=== PATIENT | male | born 1940 | race Caucasian/White ===

== ENCOUNTER 2016-04-07 13:59 | Emergency (ER) | payer MEDICARE, OTHER ==
[2016-04-07] MEDS ORDERED: Aspirin 81 MG Tab.Chew PO ONE (14:06)
--- NOTE | 2016-04-07 14:46 | CR ---
EXAMINATION: Portable chest radiograph. HISTORY: Chest. FINDINGS: The trachea is midline. The cardiomediastinal silhouette is within normal limits. No pulmonary infil trates, effusions or pneumothorax. Osseous structures appear unremarkable. IMPRESSION: No acute cardiopulmonary process.
--- NOTE | 2016-04-07 15:01 | EDM.PDOC ---
ED HISTORY OF PRESENT ILLNESS - General Chief Complaint: Chest Pain Stated Complaint: POSS PNUEMONIA Time Seen by Provider: 04/07/16 14:05 Source of Information: Reports: Patient History Limitations: Reports: No limitations - History of Present Illness INITIAL COMMENTS - FREE TEXT/NARRATIVE: HISTORY AND PHYSICAL: History of present illness: [Comes to the emergency room complaining of some shortness of breath and vague chest pain. States that he hasn't felt well for the past couple of weeks with decreased appetite and low back pain. He hasn't slept well for the past couple of nights due to his low back pain. He drove himself and his from [employer] and got home late last night. He has some discomfort in his chest with taking a deep breath but has not felt overly short of air. No nausea or vomiting. No episodes of diaphoresis. No change to memory or alertness. Bowel and bladder have been normal. He has had some occasional dry cough but nothing significant and no sputum production. No headaches. Has a history of hypertension and atrial fibrillation. Back pain is over R low back.Takes Norvasc at bedtime and Eliquis twice a day.] Review of systems: As per history of present illness and below otherwise all systems reviewed and negative. Past medical history: As per history of present illness and as reviewed below otherwise noncontributory. Surgical history: As per history of present illness and as reviewed below otherwise noncontributory. Social history: No reported history of drug or alcohol abuse. Family history: As per history of present illness and as reviewed below otherwise noncontributory. Physical exam: HEENT: Atraumatic, normocephalic. Wears glasses. negative for conjunctival pallor and scleral icterus. mucous membranes moist, throat clear. neck supple, nontender, lymphadenopathy. trachea midline. Lungs: Clear to auscultation, breath sounds equal bilaterally, no wheezing crackles or rales. chest nontender to palpation. Heart: S1S2, regular, negative for clicks, rubs, or JVD. Abdomen: Normoactive bowel sounds throughout. Abdomen is soft, nondistended, nontender. No CVA tenderness Negative for masses or hepatosplenomegaly. Pelvis: Stable nontender. Back: No deformity or abnormality is appreciated. No rashes or skin lesions. No spinal tenderness w/ palpation. No CVA tenderness. Genitourinary: Deferred. Rectal: Deferred. Extremities: Atraumatic, negative for cords or calf pain. Neurovascular unremarkable. Neuro: Awake, alert, oriented. Cranial nerves II through XII unremarkable. Cerebellum unremarkable. Motor and sensory unremarkable throughout. Exam nonfocal. Diagnostics: [CBC, CMP, troponin, urinalysis, chest x-ray, lumbar spine x-ray, EKG, d-dimer] Therapeutics: [Aspirin 324 mg by mouth, Toradol 30 mg IV] Impression: [Low back pain] Plan: [Discussed with patient that his chest x-ray, lab results are within normal limits. Chest pain does not appear to be cardiac or pneumonia related. Lumbar x- ray shows no fractures or dislocations. Recommend that he followup with provider as scheduled for April 10. He return to ER as needed and as discussed. All of his questions are answered and concerns are addressed.] Definitive disposition and diagnosis as appropriate pending reevaluation and review of above. - Related Data Allergies/ADRs: Allergies Allergy/AdvReac Type Severity Reaction Status Date / Time ofloxacin Allergy Unknown Verified 04/07/16 14:07 Sulfa (Sulfonamide Allergy Unknown Verified 04/07/16 14:07 Antibiotics) sulfasalazine Allergy Unknown Verified 04/07/16 14:07 [From Azulfidine] Home Meds: Home Meds Apixaban [Eliquis] 2 tab PO DAILY 04/07/16 [History] Aspirin [Halfprin] 162 mg PO DAILY 04/07/16 [History] Finasteride 5 mg PO DAILY 04/07/16 [History] amLODIPine [Norvasc] 10 mg PO BEDTIME 04/07/16 [History] Past Medical History Cardiovascular History: Reports: Afib, Hypertension Social & Family History - Family History Family Medical History: Noncontributory - Tobacco Use Smoking Status *Q: Former Smoker Tobacco Use Comment: quit smoking 34 years ago - Alcohol Use Days Per Week of Alcohol Use: 1 Number of Drinks Per Day: 1 Total Drinks Per Week: 1 - Recreational Drug Use Recreational Drug Use: No ED ROS GENERAL - Review of Systems Review Of Systems: ROS reveals no pertinent complaints other than HPI. ED EXAM, GENERAL - Physical Exam Exam: See Below Course - Vital Signs Last Recorded V/S: Last Vital Signs Temp 98.1 F 04/07/16 17:02 Pulse 102 H 04/07/16 17:02 Resp 16 04/07/16 17:02 BP 118/82 04/07/16 17:02 Pulse Ox 95 04/07/16 17:02 - Orders/Labs/Meds Orders: Active Orders 24 hr Category Date Time Status EKG Documentation Completion [RC] STAT Care 04/07/16 14:05 Active Labs: Laboratory Tests 04/07/16 04/07/16 04/07/16 Range/Units 14:05 14:05 14:05 WBC 5.91 (4.0-11.0) K/uL RBC 5.11 (4.50-5.90) M/uL Hgb 15.1 (13.0-17.0) g/dL Hct 46.0 (38.0-50.0) % MCV 90.0 (80.0-98.0) fL MCH 29.5 (27.0-32.0) pg MCHC 32.8 (31.0-37.0) g/dL RDW Std Deviation 46.5 (28.0-62.0) fl RDW Coeff of Enzo 14 (11.0-15.0) % Plt Count 199 (150-400) K/uL MPV 10.30 (7.40-12.00) fL Neut % (Auto) 67.0 (48.0-80.0) % Lymph % (Auto) 18.8 (16.0-40.0) % [place] % (Auto) 12.7 (0.0-15.0) % Eos % (Auto) 1.2 (0.0-7.0) % Baso % (Auto) 0.3 (0.0-1.5) % Neut # 4.0 (1.4-5.7) K/uL Lymph # 1.1 (0.6-2.4) K/uL [place] # 0.8 (0.0-0.8) K/uL Eos # 0.1 (0.0-0.7) K/uL Baso # 0.0 (0.0-0.1) K/uL Nucleated RBC % 0.0 /100WBC Nucleated RBCs # 0 K/uL D-Dimer, Quantitative (0.0-0.52) mg/LFEU Sodium 142 (136-146) mmol/L Potassium 3.6 (3.5-5.1) mmol/L Chloride 106 (98-110) mmol/L Carbon Dioxide 24 (21-31) mmol/L BUN 26 H (6.0-23.0) mg/dL Creatinine 1.4 (0.6-1.5) mg/dL Est Cr Clr Drug Dosing 52.81 mL/min Estimated GFR (MDRD) 49.1 ml/min Glucose 108 (60-110) mg/dL Calcium 9.7 (8.8-10.8) mg/dL Total Bilirubin 0.6 (0.1-1.5) mg/dL AST 40 (5-40) IU/L ALT 43 (8-54) IU/L Alkaline Phosphatase 62 (40-150) CK-MB (CK-2) 1.7 (0-6.6) ng/ml Troponin I < 0.10 (0.0-0.29) NG/ML Total Protein 8.1 H (6.0-8.0) g/dL Albumin 4.4 (3.4-4.8) g/dL Globulin 3.7 H (2.0-3.5) g/dL Albumin/Globulin Ratio 1.2 L (1.3-2.8) Urine Color Urine Appearance Urine pH (5.0-8.0) Ur Specific [place] (1.001-1.035) Urine Protein (NEGATIVE) mg/dL Urine Glucose (UA) (NEGATIVE) mg/dL Urine Ketones (NEGATIVE) mg/dL Urine Occult Blood (NEGATIVE) Urine Nitrite (NEGATIVE) Urine Bilirubin (NEGATIVE) Urine Ictotest Urine Urobilinogen (<2.0) EU/dL Ur Leukocyte Esterase (NEGATIVE) Urine RBC (0-2/HPF) Urine WBC (0-5/HPF) Ur Epithelial Cells (NONE-FEW) Urine Bacteria (NEGATIVE) Hyaline Casts (0-2/LPF) Urine Mucus (NONE-MOD) 04/07/16 04/07/16 Range/Units 14:05 15:10 WBC (4.0-11.0) K/uL RBC (4.50-5.90) M/uL Hgb (13.0-17.0) g/dL Hct (38.0-50.0) % MCV (80.0-98.0) fL MCH (27.0-32.0) pg MCHC (31.0-37.0) g/dL RDW Std Deviation (28.0-62.0) fl RDW Coeff of Enzo (11.0-15.0) % Plt Count (150-400) K/uL MPV (7.40-12.00) fL Neut % (Auto) (48.0-80.0) % Lymph % (Auto) (16.0-40.0) % [place] % (Auto) (0.0-15.0) % Eos % (Auto) (0.0-7.0) % Baso % (Auto) (0.0-1.5) % Neut # (1.4-5.7) K/uL Lymph # (0.6-2.4) K/uL [place] # (0.0-0.8) K/uL Eos # (0.0-0.7) K/uL Baso # (0.0-0.1) K/uL Nucleated RBC % /100WBC Nucleated RBCs # K/uL D-Dimer, Quantitative 0.34 (0.0-0.52) mg/LFEU Sodium (136-146) mmol/L Potassium (3.5-5.1) mmol/L Chloride (98-110) mmol/L Carbon Dioxide (21-31) mmol/L BUN (6.0-23.0) mg/dL Creatinine (0.6-1.5) mg/dL Est Cr Clr Drug Dosing mL/min Estimated GFR (MDRD) ml/min Glucose (60-110) mg/dL Calcium (8.8-10.8) mg/dL Total Bilirubin (0.1-1.5) mg/dL AST (5-40) IU/L ALT (8-54) IU/L Alkaline Phosphatase (40-150) CK-MB (CK-2) (0-6.6) ng/ml Troponin I (0.0-0.29) NG/ML Total Protein (6.0-8.0) g/dL Albumin (3.4-4.8) g/dL Globulin (2.0-3.5) g/dL Albumin/Globulin Ratio (1.3-2.8) Urine Color YELLOW Urine Appearance HAZY Urine pH 6.0 (5.0-8.0) Ur Specific [place] 1.025 (1.001-1.035) Urine Protein 30 (NEGATIVE) mg/dL Urine Glucose (UA) NEGATIVE (NEGATIVE) mg/dL Urine Ketones TRACE H (NEGATIVE) mg/dL Urine Occult Blood NEGATIVE (NEGATIVE) Urine Nitrite NEGATIVE (NEGATIVE) Urine Bilirubin SMALL H (NEGATIVE) Urine Ictotest NEGATIVE Urine Urobilinogen 1.0 (<2.0) EU/dL Ur Leukocyte Esterase NEGATIVE (NEGATIVE) Urine RBC 0-2 (0-2/HPF) Urine WBC 1-3 (0-5/HPF) Ur Epithelial Cells RARE (NONE-FEW) Urine Bacteria FEW (NEGATIVE) Hyaline Casts 0-2 (0-2/LPF) Urine Mucus MANY (NONE-MOD) Meds: Medications Discontinued Medications Generic Name Dose Route Start Last Admin Trade Name Freq PRN Reason Stop Dose Admin Ketorolac Tromethamine 30 mg 04/07/16 16:25 04/07/16 16:48 Toradol IVPUSH 04/07/16 16:26 30 mg ONETIME ONE Administration Departure - Departure Time of Disposition: 16:30 Disposition: Home, Self-Care 01 Condition: good Clinical Impression: Low back pain Qualifiers: Chronicity: acute Back pain laterality: unspecified Sciatica presence: without sciatica Qualified Code(s): M54.5 - Low back pain Instructions: Back Pain, Adult, [id number] Referrals: Thom Reyes MD [Primary Care Provider] - Forms: ED Department Discharge Additional Instructions: The following information is given to patients seen in the emergency department who are being discharged to home. This information is to outline your options for follow-up care. We provide all patients seen in our emergency department with a follow-up referral. The need for follow-up, as well as the timing and circumstances, are variable depending upon the specifics of your emergency department visit. If you don't have a primary care physician on staff, we will provide you with a referral. We always advise you to contact your personal physician following an emergency department visit to inform them of the circumstance of the visit and for follow-up with them and/or the need for any referrals to a consulting specialist. The emergency department will also refer you to a specialist when appropriate. This referral assures that you have the opportunity for follow-up care with a specialist. All of these measure are taken in an effort to provide you with optimal care, which includes your follow-up. Under all circumstances we always encourage you to contact your private physician who remains a resource for coordinating your care. When calling for follow-up care, please make the office aware that this follow-up is from your recent emergency room visit. If for any reason you are refused follow-up, please contact the [facility] emergency department at and asked to speak to the emergency department charge nurse. [facility] [address] [place] [id number] Followup with her primary care provider is scheduled for April 10. Take diclofenac with food. May alternate with Tylenol as needed for discomfort. Return to ER as needed and as discussed. - My Orders Last 24 Hours: My Active Orders 04/07/16 14:05 EKG Documentation Completion [RC] STAT - Assessment/Plan Last 24 Hours: My Active Orders 04/07/16 14:05 EKG Documentation Completion [RC] STAT
--- NOTE | 2016-04-07 16:06 | CR ---
EXAMINATION: Lumbar spine HISTORY: Pain COMPARISON: None TECHNIQUE: AP and lateral views FINDINGS: There is mild levoscoliosis of the lumbar spine. Mild wedge deformities are noted at L2 an d L3. Moderate marginal osteophytes are noted. The osseous structures appear osteopenic. SI joints a re symmetric. Moderate vascular calcifications are present. IMPRESSION: 1. Moderate osteopenia. 2. Mild levoscoliosis with wedge deformities at L2 and L3. 3. Moderate degenerative changes.
[2016-04-07] MEDS ORDERED: Ketorolac 30 MG/ML SDV IVPUSH ONE (16:25)
[2016-04-07 17:06] VITALS: BP 118/82
== END 2016-04-07 17:03 | disposition home or self-care (01) ==
LOC: MW.ED 13:59
DX: M54.5 Low back pain (principal); R07.89 Other chest pain; I48.91 Unspecified atrial fibrillation; I10 Essential (primary) hypertension; Z88.2 Allergy status to sulfonamides; Z88.6 Allergy status to analgesic agent; Z79.82 Long term (current) use of aspirin; Z79.899 Other long term (current) drug therapy; Z87.891 Personal history of nicotine dependence
CPT/HCPCS: 71010; 72100; 80053; 81001; 82553; 84484; 85025; 85379; 93005; 96374; 99285; J1885; 99284

== ENCOUNTER → 2016-04-10 | Outpatient (CLI) | payer MEDICARE, OTHER | LOC: MW.CHIM 15:14 | PROVIDERS: ATTEND Internal Medicine | DX: R05 Cough (principal) | CPT/HCPCS: 36415; 86635; 99214 ==

== ENCOUNTER → 2016-04-12 | Outpatient (CLI) | payer MEDICARE, OTHER ==
--- NOTE | 2016-04-13 14:25 | CT ---
MEXAM DATE: 04/12/16 PATIENT'S AGE: 76 Patient: HO ARANGO Facility: [place], [place] Site . Site : 1940 Study: CT Chest WO CONT [id number] 1:31:20 PM Ordering Physician: Sandee Lazar Final Report: INDICATION: Cough and dyspnea. TECHNIQUE: CT chest without contrast. COMPARISON: Radiograph July 08, 2013. FINDINGS: LUNGS: There is a pleural based mass or infiltrate in the lateral right lung apex measuring 4.2 x 3.2 x 2.5 cm. There is a halo of ground-glass opacification surrounding this lesion. Soft tissue nodule in the medial right lung apex on the axial series image 15 measures 1.7 x 1.4 cm. There are 2 nodules between the right upper lobe mass and the hilum. The larger nodule on the axial series image 36 measures 1.9 x 1.5 cm. Smaller adjacent nodule on image 37 measures approximately 0.6 cm. Passive atelectasis is present in the right lower lobe. PLEURA AND PERICARDIUM: There is a moderate sized right pleural effusion. HEART AND VASCULATURE: Heart size is normal. Thoracic aorta and pulmonary artery are normal in caliber.Coronary artery atherosclerosis is present. LYMPH NODES/MEDIASTINUM: There is bulky mediastinal and right hilar lymphadenopathy. For example in a lymph node mass exam on axial series image 41 measures 7.0 x 4.2 cm. CHEST WALL: No masses. There are 2 subcentimeter low attenuation nodules in the right thyroid lobe. UPPER ABDOMEN: Small cystic lesions are present in the liver. Adrenal glands are normal. BONES: Unremarkable for age. IMPRESSION: Pleural-based right upper lobe mass is a malignancy until proven otherwise. Satellite nodules in the right upper lobe and bulky mediastinal and right hilar lymphadenopathy are consistent with metastatic disease. There is also a right- sided pleural effusion. No sign of acute or metastatic disease elsewhere in the chest or upper abdomen. Dictated by Tristen Palacios MD @ Apr 13 2016 9:38AM (Electronic Signature) Report Signed by Proxy and Original Signed Document filed in the Medical Record. [facility]
--- NOTE | 2016-04-13 14:26 | CT ---
EXAM DATE: 04/12/16 PATIENT'S AGE: 76 Patient: HO ARANGO Facility: [place], [place] Site . Site : 1940 Study: CT Abdomen/Pelvis W/O CONT [id number] 1:36:46 PM Ordering Physician: Sandee Lazar Final Report: INDICATION: Cough. Dyspnea. Renal colic. TECHNIQUE: CT abdomen and pelvis without contrast. COMPARISON: May 02, 2011. FINDINGS: LOWER CHEST: There is a moderate size right pleural effusion with adjacent passive atelectasis. LIVER: There are multiple small benign-appearing cystic lesions. Liver is otherwise normal in caliber and appearance. GALLBLADDER AND BILE DUCTS: No stones or inflammation. No biliary dilatation. PANCREAS: Unremarkable. No mass or inflammation. SPLEEN: Normal in size. No masses. ADRENAL GLANDS: Subtle nodularity of the left adrenal gland is of doubtful significance. KIDNEYS: Tiny solitary stone is nonobstructing in the left kidney. No other kidney or ureteral stones. No hydronephrosis. Small bilateral parapelvic cysts are present. No sign of perinephric inflammation. GI TRACT: Mild stool retention is present in the proximal colon. GI tract is otherwise normal in caliber and appearance. Normal appendix. VASCULATURE: Moderate aortic atherosclerosis and ectasia of the distal abdominal aorta. The common iliac arteries are minimally aneurysmal. LYMPH NODES: No lymphadenopathy. OMENTUM/PERITONEUM: Solitary 1 cm well-circumscribed nodule is in the right aspect of the omentum visualized on the axial series 2 image 45. No other sign of mass or infiltrate. No free fluid and no free air. PELVIS: Marked prostatic hypertrophy. Urinary bladder is unremarkable except for a small right posterior diverticulum. BONES: No suspicious bone lesions. Mild scoliosis and multilevel spondylosis in the lumbar spine. IMPRESSION: 1. No findings to explain renal colic. There is a single tiny nonobstructive left renal stone. No hydronephrosis and no sign of edema or inflammation in the tract. 2. Moderate size right pleural effusion with adjacent atelectasis. 3. Marked prostate gland hypertrophy. 4. Solitary right omental soft tissue nodule likely represents a lymph node measuring 1 cm. As an isolated finding this is of doubtful significance. Dictated by Tristen Palacios MD @ 04/13/2016 9:50:10 AM Dictated by: Tristen Palacios MD @ 04/13/2016 09:50:17 (Electronic Signature) Report Signed by Proxy and Original Signed Document filed in the Medical Record. [facility]
== END ==
LOC: MW.DI 12:43
PROVIDERS: ATTEND Internal Medicine
DX: R05 Cough (principal); N23 Unspecified renal colic; R06.00 Dyspnea, unspecified; N20.0 Calculus of kidney; J98.11 Atelectasis; N40.0 Benign prostatic hyperplasia without lower urinary tract symptoms; R91.8 Other nonspecific abnormal finding of lung field; J90 Pleural effusion, not elsewhere classified; C79.89 Secondary malignant neoplasm of other specified sites; C77.1 Secondary and unspecified malignant neoplasm of intrathoracic lymph nodes
CPT/HCPCS: 71250; 71250-26; 74176; 74176-26

== ENCOUNTER → 2016-04-14 | Outpatient (CLI) | payer MEDICARE, OTHER | LOC: MW.CHIM 08:00 | PROVIDERS: ATTEND Internal Medicine | DX: R91.8 Other nonspecific abnormal finding of lung field (principal); J91.0 Malignant pleural effusion; R05 Cough; R06.00 Dyspnea, unspecified | CPT/HCPCS: 99214 ==

== ENCOUNTER 2016-11-26 18:57 | Observation (INO) | payer MEDICARE, OTHER ==
[2016-11-26] MEDS ORDERED: Ondansetron 4 MG/2 ML SDV IVPUSH ONE (19:26)
[2016-11-26] MEDS ORDERED: HYDROmorphone 1 MG/ML Syringe IVPUSH ONE (19:26)
[2016-11-26] MEDS ORDERED: Sodium Chloride 0.9% 1,000 ML IV SCH (19:30)
--- NOTE | 2016-11-26 19:33 | EDM.PDOC ---
ED HPI GENERAL MEDICAL PROBLEM - General Chief Complaint: General Stated Complaint: STOMACH PAIN Time Seen by Provider: 11/26/16 19:06 - History of Present Illness INITIAL COMMENTS - FREE TEXT/NARRATIVE: HISTORY AND PHYSICAL: History of present illness: Patient is 76-year-old white male history of metastatic lung cancer and chronic atrial fibrillation who presents with a concern of abdominal pain nausea vomiting and constipation he's been battling with these symptoms off and on although he states today somewhat worse he has had similar episodes requiring IV fluids for dehydration he denies chest pain palpitations fever chills trauma urinary symptoms or other concern Review of systems: As per history of present illness and below otherwise all systems reviewed and negative. Past medical history: As per history of present illness and as reviewed below otherwise noncontributory. Surgical history: As per history of present illness and as reviewed below otherwise noncontributory. Social history: No reported history of drug or alcohol abuse. Family history: As per history of present illness and as reviewed below otherwise noncontributory. Physical exam: HEENT: Atraumatic, normocephalic, pupils reactive, mild conjunctival pallor no scleral icterus, mucous membranes moist, throat clear, neck supple, nontender, trachea midline. Lungs: Slightly coarse no wheezing, breath sounds equal bilaterally, chest nontender. Heart: S1S2, regular, negative for clicks, rubs, or JVD. Abdomen: Soft, nondistended, no localized tenderness. Negative for masses or hepatosplenomegaly. Negative for costovertebral tenderness. Pelvis: Stable nontender. Genitourinary: Deferred. Rectal: Deferred. Extremities: Atraumatic, negative for cords or calf pain. Neurovascular unremarkable. Neuro: Awake, alert, oriented. Cranial nerves II through XII unremarkable. Cerebellum unremarkable. Motor and sensory unremarkable throughout. Exam nonfocal. Diagnostics: CBC CMP amylase lipase UA chest x-ray EKG CT abdomen and pelvis with IV contrast Therapeutics: Normal saline 1 L bolus Dilaudid 1 mg IV Zofran 4 mg IV Impression: #1 history of metastatic lung cancer #2 abdominal pain #3 vomiting with dehydration #4 history of chronic A. fib Definitive disposition and diagnosis as appropriate pending reevaluation and review of above. Abdomen Pain Score (Numeric/FACES): 9 - Related Data Allergies Allergy/AdvReac Type Severity Reaction Status Date / Time ofloxacin Allergy Unknown Verified 11/26/16 19:15 Sulfa (Sulfonamide Allergy Unknown Verified 11/26/16 19:15 Antibiotics) sulfasalazine Allergy Unknown Verified 11/26/16 19:15 [From Azulfidine] Home Meds: Home Meds Finasteride 5 mg PO DAILY 04/07/16 [History] amLODIPine [Norvasc] 10 mg PO BEDTIME 04/07/16 [History] Apixaban [Eliquis] 10 mg PO DAILY 11/26/16 [History] Morphine 15 mg PO DAILY 11/26/16 [History] Ondansetron [Zofran] 4 mg PO DAILY PRN 11/26/16 [History] Past Medical History HEENT History: Reports: None Cardiovascular History: Reports: Afib, Hypertension Respiratory History: Reports: Other (See Below) Other Respiratory History: lung ca Gastrointestinal History: Reports: None Genitourinary History: Reports: None Musculoskeletal History: Reports: None Neurological History: Reports: None Psychiatric History: Reports: None Endocrine/Metabolic History: Reports: None Hematologic History: Reports: None Immunologic History: Reports: None Oncologic (Cancer) History: Reports: Lung Dermatologic History: Reports: None - Infectious Disease History Infectious Disease History: Reports: None - Past Surgical History Head Surgeries/Procedures: Reports: None HEENT Surgical History: Reports: None Cardiovascular Surgical History: Reports: None GI Surgical History: Reports: None Male Surgical History: Reports: None Social & Family History - Family History Family Medical History: Noncontributory - Tobacco Use Smoking Status *Q: Former Smoker - Caffeine Use Caffeine Use: Reports: Coffee - Alcohol Use Days Per Week of Alcohol Use: 1 Number of Drinks Per Day: 1 Total Drinks Per Week: 1 - Recreational Drug Use Recreational Drug Use: No ED ROS GENERAL - Review of Systems Review Of Systems: ROS reveals no pertinent complaints other than HPI. ED EXAM, GENERAL - Physical Exam Exam: See Below (See dictation) Course - Vital Signs Last Recorded V/S: Last Vital Signs Temp 36.1 C 11/26/16 20:40 Pulse 94 11/26/16 20:40 Resp 16 11/26/16 20:40 BP 138/93 H 11/26/16 20:40 Pulse Ox 96 11/26/16 20:40 - Orders/Labs/Meds Orders: Active Orders 24 hr Category Date Time Status EKG Documentation Completion [RC] STAT Care 11/26/16 19:26 Active Abdomen Pelvis w Cont [CT] Stat Exams 11/26/16 19:30 Taken Chest 1V Frontal [CR] Stat Exams 11/26/16 19:26 Taken Sodium Chloride 0.9% [Normal Saline] 1,000 ml Med 11/26/16 19:30 Active IV ASDIRECTED Medication Orders Sodium Chloride (Normal Saline) 1,000 mls @ 999 mls/hr IV ASDIRECTED NUPUR Last Admin: 11/26/16 19:46 Dose: 999 mls/hr Labs: Laboratory Tests 11/26/16 11/26/16 11/26/16 Range/Units 19:40 19:40 21:00 WBC 5.18 (4.0-11.0) K/uL RBC 3.89 L (4.50-5.90) M/uL Hgb 12.2 L (13.0-17.0) g/dL Hct 36.7 L (38.0-50.0) % MCV 94.3 (80.0-98.0) fL MCH 31.4 (27.0-32.0) pg MCHC 33.2 (31.0-37.0) g/dL RDW Std Deviation 51.5 (28.0-62.0) fl RDW Coeff of Enzo 15 (11.0-15.0) % Plt Count 218 (150-400) K/uL MPV 9.20 (7.40-12.00) fL Neut % (Auto) 69.1 (48.0-80.0) % Lymph % (Auto) 13.5 L (16.0-40.0) % [place] % (Auto) 14.1 (0.0-15.0) % Eos % (Auto) 2.9 (0.0-7.0) % Baso % (Auto) 0.4 (0.0-1.5) % Neut # (Auto) 3.6 (1.4-5.7) K/uL Lymph # (Auto) 0.7 (0.6-2.4) K/uL [place] # (Auto) 0.7 (0.0-0.8) K/uL Eos # (Auto) 0.2 (0.0-0.7) K/uL Baso # (Auto) 0.0 (0.0-0.1) K/uL Nucleated RBC % 0.0 /100WBC Nucleated RBCs # 0 K/uL Sodium 136 (136-146) mmol/L Potassium 4.9 (3.5-5.1) mmol/L Chloride 99 (98-110) mmol/L Carbon Dioxide 27 (21-31) mmol/L BUN 22 (6.0-23.0) mg/dL Creatinine 1.1 (0.6-1.5) mg/dL Est Cr Clr Drug Dosing 62.28 mL/min Estimated GFR (MDRD) > 60.0 ml/min Glucose 120 H (60-110) mg/dL Calcium 9.8 (8.8-10.8) mg/dL Total Bilirubin 0.5 (0.1-1.5) mg/dL AST 47 H (5-40) IU/L ALT 38 (8-54) IU/L Alkaline Phosphatase 52 (40-150) Total Protein 8.1 H (6.0-8.0) g/dL Albumin 3.6 (3.4-4.8) g/dL Globulin 4.5 H (2.0-3.5) g/dL Albumin/Globulin Ratio 0.8 L (1.3-2.8) Amylase 53 (10-90) U/L Lipase 24 (7-80) U/L Urine Color YELLOW Urine Appearance CLEAR Urine pH 6.0 (5.0-8.0) Ur Specific [place] 1.020 (1.001-1.035) Urine Protein NEGATIVE (NEGATIVE) mg/dL Urine Glucose (UA) NEGATIVE (NEGATIVE) mg/dL Urine Ketones NEGATIVE (NEGATIVE) mg/dL Urine Occult Blood NEGATIVE (NEGATIVE) Urine Nitrite NEGATIVE (NEGATIVE) Urine Bilirubin NEGATIVE (NEGATIVE) Urine Urobilinogen 0.2 (<2.0) EU/dL Ur Leukocyte Esterase NEGATIVE (NEGATIVE) Urine RBC 0-1 (0-2/HPF) Urine WBC 0-2 (0-5/HPF) Ur Epithelial Cells OCCASIONAL (NONE-FEW) Urine Bacteria RARE (NEGATIVE) Meds: Medications Generic Name Dose Route Start Last Admin Trade Name Freq PRN Reason Stop Dose Admin Sodium Chloride 1,000 mls @ 999 mls/hr 11/26/16 19:30 11/26/16 19:46 Normal Saline IV 999 mls/hr ASDIRECTED NUPUR Administration Discontinued Medications Generic Name Dose Route Start Last Admin Trade Name Howard PRN Reason Stop Dose Admin Hydromorphone HCl 1 mg 11/26/16 19:26 11/26/16 19:49 Dilaudid IVPUSH 11/26/16 19:27 1 mg ONETIME ONE Administration Iopamidol 100 ml 11/26/16 22:48 11/26/16 22:48 Isovue Multipack-370 (76%) IVPUSH 11/26/16 22:49 100 ml ONETIME STA Administration Ondansetron HCl 4 mg 11/26/16 19:26 11/26/16 19:46 Zofran IVPUSH 11/26/16 19:27 4 mg ONETIME ONE Administration Departure - Departure Time of Disposition: 23:01 Disposition: Refer to Observation Condition: Good Clinical Impression: Abdominal pain, Metastatic lung cancer (metastasis from lung to other site), Dehydration, Atrial fibrillation - Discharge Information Referrals: Thom Reyes MD [Primary Care Provider] - Forms: ED Department Discharge - My Orders Last 24 Hours: My Active Orders 11/26/16 19:26 EKG Documentation Completion [RC] STAT Chest 1V Frontal [CR] Stat 11/26/16 19:30 Abdomen Pelvis w Cont [CT] Stat Sodium Chloride 0.9% [Normal Saline] 1,000 ml IV ASDIRECTED - Assessment/Plan Last 24 Hours: My Active Orders 11/26/16 19:26 EKG Documentation Completion [RC] STAT Chest 1V Frontal [CR] Stat 11/26/16 19:30 Abdomen Pelvis w Cont [CT] Stat Sodium Chloride 0.9% [Normal Saline] 1,000 ml IV ASDIRECTED
[2016-11-26 20:03] LABS: CHLORIDE,CL 99 mmol/L (98-110); SODIUM,NA 136 mmol/L (136-146)
[2016-11-26] MEDS ORDERED: Iopamidol 755 MG/ML 500 ML Multipack Bottle IVPUSH STA (22:48)
[2016-11-27] MEDS ORDERED: oxyCODONE 5 MG Tab PO PRN (00:15)
[2016-11-27] MEDS: Sodium Chloride 0.9% 1,000 ML IV SCH ×3 (01:08→20:15)
[2016-11-27] MEDS: Ondansetron 4 MG/2 ML SDV IVPUSH PRN ×3 (03:49→15:40)
[2016-11-27 06:43] LABS: CHLORIDE,CL 102 mmol/L (98-110); SODIUM,NA 136 mmol/L (136-146)
--- NOTE | 2016-11-27 08:01 | PCM.HP ---
H&P History of Present Illness - General Date of Service: 11/27/16 Admit Problem/Dx: Admission Diagnosis/Problem Admission Diagnosis/Problem Abdominal pain Source of Information: Patient History Limitations: Reports: No Limitations - History of Present Illness Initial Comments - Free Text/Narative: This 76 year old male with pmh of metastatic lung ca and afib presented to the ED with concerns of abdominal pain and nausea. He reports having lower abdominal pain, which is cramping in nature, sharp and intermittent. He reports this has been a chronic issue and has a EGD scheduled for next week with Dr. Brady, general surgery here. He also had been seen by GI specialist in the past and treated for IBD. He denies any fevers, chest pain or SOB at home. He does report some constipation, no black or bloody bms. His appetite has been poor due to nausea. In the ED labwork WNL. Abd pelvis CT revealed thickening of ascending colom, diffuse osseous metastatic disease and small r pleural effusion. He was admitted observation for abdominal pain, colitis. Abdomen Pain Score (Numeric/FACES): 5 - Related Data Allergies/Adverse Reactions: Allergies Allergy/AdvReac Type Severity Reaction Status Date / Time Sulfa (Sulfonamide Allergy Unknown Verified 11/26/16 19:15 Antibiotics) sulfasalazine Allergy Unknown Verified 11/26/16 19:15 [From Azulfidine] Home Medications: Home Meds Finasteride 5 mg PO DAILY 04/07/16 [History] amLODIPine [Norvasc] 10 mg PO BEDTIME 04/07/16 [History] Apixaban [Eliquis] 5 mg PO BID 11/26/16 [History] Ondansetron [Zofran] 4 mg PO DAILY PRN 11/26/16 [History] Morphine Sulfate [Morphine Sulfate ER] 15 mg PO DAILY 11/27/16 [History] Past Medical History HEENT History: Reports: None Cardiovascular History: Reports: Afib, Hypertension Respiratory History: Reports: Other (See Below) Other Respiratory History: lung ca Gastrointestinal History: Reports: None Genitourinary History: Reports: None Musculoskeletal History: Reports: None Neurological History: Reports: None Psychiatric History: Reports: None Endocrine/Metabolic History: Reports: None Hematologic History: Reports: Anticoagulation Therapy Immunologic History: Reports: None Oncologic (Cancer) History: Reports: Lung Dermatologic History: Reports: None - Infectious Disease History Infectious Disease History: Reports: None - Past Surgical History Head Surgeries/Procedures: Reports: None HEENT Surgical History: Reports: None Cardiovascular Surgical History: Reports: None GI Surgical History: Reports: None Male Surgical History: Reports: None Social & Family History - Family History Family Medical History: Noncontributory - Tobacco Use Smoking Status *Q: Former Smoker Used Tobacco, but Quit: No Second Hand Smoke Exposure: No - Caffeine Use Caffeine Use: Reports: Coffee - Alcohol Use Days Per Week of Alcohol Use: 1 Number of Drinks Per Day: 1 Total Drinks Per Week: 1 - Recreational Drug Use Recreational Drug Use: No H&P Review of Systems - Review of Systems: Review Of Systems: See Below General: Reports: Decreased Appetite. Denies: Fever, Chills, Malaise HEENT: Reports: No Symptoms. Denies: Headaches, Sinus Congestion, Sore Throat Pulmonary: Reports: No Symptoms. Denies: Shortness of Breath, Cough Cardiovascular: Reports: No Symptoms. Denies: Chest Pain, Edema Gastrointestinal: Reports: Abdominal Pain, Constipation, Nausea. Denies: Black Stool, Bloody Stool, Vomiting Genitourinary: Reports: No Symptoms. Denies: Dysuria, Frequency, Burning Musculoskeletal: Reports: No Symptoms, Neck Pain Neurological: Reports: No Symptoms. Denies: Confusion Hematologic/Lymphatic: Reports: No Symptoms. Denies: Anemia Exam - Exam Exam: See Below - Vital Signs Vital Signs: Last Vital Signs Temp 98.1 F 11/27/16 04:00 Pulse 92 11/27/16 04:00 Resp 16 11/27/16 04:00 BP 134/79 11/27/16 04:00 Pulse Ox 94 L 11/27/16 00:20 Weight: 161.2 kg - Exam General: Alert, Oriented, Cooperative HEENT: Conjunctiva Clear, Mucosa Moist & [place], Pupils Equal, Pupils Reactive Lungs: Clear to Auscultation, Normal Respiratory Effort Cardiovascular: Regular Rate, Regular Rhythm GI/Abdominal Exam: Normal Bowel Sounds, Soft, Tender (lower abdomen, and more tenderness to L lower quadrant versus scant tenderness to R. ). No: Distended, Guarding, Rigid Extremities: Normal Inspection, Normal Range of Motion, Non-Tender, No Pedal Edema, Normal Capillary Refill Neuro Extensive - Mental Status: Alert, Oriented x3, Normal Mood/Affect, Normal Cognition Neuro Extensive - Motor, Sensory, Reflexes: CN II-XII Intact Psychiatric: Alert, Normal Affect, Normal Mood - Patient Data Lab Results Last 24 hrs: Laboratory Results - last 24 hr 11/27/16 11/27/16 Range/Units 06:05 06:05 WBC 3.68 L (4.0-11.0) K/uL RBC 3.42 L (4.50-5.90) M/uL Hgb 10.7 L (13.0-17.0) g/dL Hct 32.2 L (38.0-50.0) % MCV 94.2 (80.0-98.0) fL MCH 31.3 (27.0-32.0) pg MCHC 33.2 (31.0-37.0) g/dL RDW Std Deviation 51.8 (28.0-62.0) fl RDW Coeff of Enzo 15 (11.0-15.0) % Plt Count 176 (150-400) K/uL MPV 8.60 (7.40-12.00) fL Nucleated RBC % 0.0 /100WBC Nucleated RBCs # 0 K/uL Sodium 136 (136-146) mmol/L Potassium 4.1 (3.5-5.1) mmol/L Chloride 102 (98-110) mmol/L Carbon Dioxide 27 (21-31) mmol/L BUN 16 (6.0-23.0) mg/dL Creatinine 1.0 (0.6-1.5) mg/dL Est Cr Clr Drug Dosing 73.94 mL/min Estimated GFR (MDRD) > 60.0 ml/min Glucose 97 (60-110) mg/dL Calcium 8.8 (8.8-10.8) mg/dL Total Bilirubin 0.4 (0.1-1.5) mg/dL AST 41 H (5-40) IU/L ALT 34 (8-54) IU/L Alkaline Phosphatase 44 (40-150) Total Protein 6.7 (6.0-8.0) g/dL Albumin 3.1 L (3.4-4.8) g/dL Globulin 3.6 H (2.0-3.5) g/dL Albumin/Globulin Ratio 0.9 L (1.3-2.8) Result Diagrams: 11/27/16 06:05 11/27/16 06:05 *Q Meaningful Use (ADM) - VTE *Q VTE Criteria *Q: - Stroke *Q Stroke Criteria *Q: - AMI *Q AMI Criteria *Q: - Problem List (1) Abdominal pain SNOMED Code(s): 63038657 ICD Code: R10.9 - UNSPECIFIED ABDOMINAL PAIN Status: Acute Current Visit : Yes Qualifiers: Abdominal location: left lower quadrant Qualified Code(s): R10.32 - Left lower quadrant pain (2) Atrial fibrillation SNOMED Code(s): 21182904 ICD Code: I48.91 - UNSPECIFIED ATRIAL FIBRILLATION Status: Chronic Current Visit: Yes (3) Metastatic lung cancer (metastasis from lung to other site) SNOMED Code(s): 065492423 ICD Code: C34.90 - MALIGNANT NEOPLASM OF UNSP PART OF UNSP BRONCHUS OR LUNG Status: Chronic Current Visit: Yes (4) Anticoagulant long-term use SNOMED Code(s): 528354159 ICD Code: Z79.01 - [employer] (CURRENT) USE OF ANTICOAGULANTS Status: Chronic Current Visit: Yes Problem List Initiated/Reviewed/Updated: Yes Orders Last 24hrs: Active Orders 24 hr Category Date Time Status Antiembolic Devices [RC] PER UNIT ROUTINE Care 11/27/16 00:17 Active Intake and Output [RC] Q12H Care 11/27/16 00:16 Active Oxygen Therapy [RC] PRN Care 11/27/16 00:15 Active VTE/DVT Education [RC] PER UNIT ROUTINE Care 11/27/16 00:15 Active Vital Signs [RC] Q4H Care 11/27/16 00:15 Active Regular Diet [DIET] Diet 11/27/16 Breakfast Active Apixaban [Eliquis] Med 11/27/16 09:00 Active 10 mg PO DAILY HYDROmorphone [Dilaudid] Med 11/27/16 00:15 Active 0.5 mg IVPUSH Q2H PRN Morphine Med 11/27/16 09:00 Active 15 mg PO DAILY Ondansetron [Zofran] Med 11/27/16 00:15 Active 4 mg IVPUSH Q4H PRN Sodium Chloride 0.9% [Normal Saline] 1,000 ml Med 11/27/16 00:15 Active IV ASDIRECTED oxyCODONE Med 11/27/16 00:15 Active 5 mg PO Q4H PRN Sequential Compression Device [OM.PC] Per Unit Routine Oth 11/27/16 00:16 Ordered Resuscitation Status Routine Resus Stat 11/27/16 00:15 Ordered Medication Orders Apixaban (Eliquis) 10 mg PO DAILY [facility] Hydromorphone HCl (Dilaudid) 0.5 mg IVPUSH Q2H PRN PRN Reason: Pain (severe 7-10) Sodium Chloride (Normal Saline) 1,000 mls @ 999 mls/hr IV ASDIRECTED [facility] Last Admin: 11/26/16 19:46 Dose: 999 mls/hr Sodium Chloride (Normal Saline) 1,000 mls @ 125 mls/hr IV ASDIRECTED [facility] Last Admin: 11/27/16 01:08 Dose: 125 mls/hr Morphine Sulfate (Morphine) 15 mg PO DAILY [facility] Ondansetron HCl (Zofran) 4 mg IVPUSH Q4H PRN PRN Reason: Pain Last Admin: 11/27/16 03:49 Dose: 4 mg Oxycodone HCl (Oxycodone) 5 mg PO Q4H PRN PRN Reason: Pain (moderate 4-6) Assessment/Plan Comment:: This 76 year old male with abdominal pain and nausea 1. Abdominal pain; likely colitis, somewhat improved today, keeping some CL down , but having some intermittent nausea. Spoke with Dr. Brady regarding admission and scheduleed EGD. With this diagnosis now he recommends canceling elective EGD and having him see a GI specialist due to his complex medical history. I spoke with [facility] regarding this and he is understanding, he wants to speak with his as to where he wants to see a GI specialist, [facility]. He would like to try po pain medication and he would like to be discharged home this evening if his pain is better. He reports feeling better now, but would like to wait a little while. Family contacted Dr. Whitney in regards to second opinion. I spoke with her over the phone and she recommended adding Protonix BID and Carafate with meals for possible gastritis as well as Cipro and Flagyl for colitis x 7 days. Monitor pain relief once these are start. She also suggested adding H pylori to labwork. She also reviewed CT and suggested dulcolax suppository due to extensive constipation. I discussed above plan with patient and his , they agree with current treatment plan. We also discussed increased ambulation due to constipation. Will keep overnight to ensure pain management. 2. Afib: Will restart Eliquis, due to EGD being canceled. VTE prophylaxis: Eliquis. Dispo: 1-2 days.
[2016-11-27] MEDS ORDERED: Morphine 15 MG Tab PO SCH (09:00)
[2016-11-27] MEDS ORDERED: Apixaban 5 MG Tab PO SCH (09:00)
[2016-11-27] MEDS: HYDROmorphone 2 MG/ML Syringe IVPUSH PRN ×2 (09:01→15:39)
[2016-11-27] MEDS: Apixaban 5 MG Tab PO SCH ×2 (12:01→20:15)
[2016-11-27] MEDS ORDERED: Bisacodyl 10 MG Supp RECTAL ONE (14:42)
[2016-11-27] MEDS ORDERED: Ciprofloxacin in D5W 400 MG in Premix Bag 1 BAG IV SCH ×2 (15:00)
[2016-11-27] MEDS: Sucralfate Suspension 1 GM/10 ML Cup PO SCH ×3 (15:41→20:19)
[2016-11-27] MEDS: metroNIDAZOLE/Normal Saline 500 MG in Premix Bag 1 BAG IV SCH ×3 (15:41→23:26)
[2016-11-27] MEDS: Morphine 15 MG Tab.ER PO SCH (15:45)
--- NOTE | 2016-11-27 15:46 | PCM.SN ---
- Free Text/Narrative Note: Ofloxacin was noted as allergy, with starting Ciprofloaxacin I asked patient regarding allergy, He doesnt recall any allergy to this medication or class and his doesn't either. Will continue with Cipro and monitor closely during administration.
[2016-11-27] MEDS: Pantoprazole 40 MG in Sodium Chloride 0.9% 10 ML IVPUSH SCH ×2 (15:57→20:22)
[2016-11-27] MEDS: Ciprofloxacin in D5W 400 MG in Premix Bag 1 BAG IV SCH ×2 (16:57)
--- NOTE | 2016-11-27 18:07 | CR ---
EXAM DATE: 11/26/16 PATIENT'S AGE: 76 Patient: HO ARANGO Facility: [place], [place] Site . Site : 1940 Study: XRay Chest [id number] 8:25:54 PM Ordering Physician: Parish Howell Final Report: CHEST 1 VIEW AP INDICATION: Pain IMPRESSION: Portacath. Central line distal SVC proximal right atrium. Possible focal alveolar opacity right apex. Focal process such as pneumonia could be considered. No effusion or pneumothorax. Borderline cardiac enlargement. Skin fold projecting over the left hemithorax. Dictated by Eduardo Castano MD @ Nov 26 2016 9:00PM (Electronic Signature) Report Signed by Proxy. TRE
--- NOTE | 2016-11-27 18:08 | CT ---
EXAM DATE: 11/26/16 PATIENT'S AGE: 76 Patient: HO ARANGO Facility: [place], [place] Site . Site : 1940 Study: CT Abdomen/Pelvis [id number] 9:53:00 PM Ordering Physician: Parish Howell Final Report: INDICATION: GENERALIZED ABD PAIN X5 MONTHS, WORSENING, H/O LUNG CA INDICATION: Worsening generalized abdominal pain x5 months, history of lung cancer. TECHNIQUE: CT abdomen and pelvis acquired with IV contrast. COMPARISON: 10/20/2016 FINDINGS: Lower chest: Small right pleural effusion with adjacent atelectasis. Liver: Multiple low-attenuation lesions within the liver some of which represent cysts others appear more complex. These appear to have increased in number compared to 10/20/16. Foci of metastatic disease cannot be excluded. Spleen: Unremarkable. Pancreas: Unremarkable. Gallbladder and bile ducts: Unremarkable. Kidneys: Unremarkable. Adrenal glands: Stable subcentimeter left adrenal nodule. GI tract: Thickening of the ascending colon. Correlate with colitis clinically. The appendix is not definitively demonstrated. Vascular structures: Unremarkable. Lymph nodes: Unremarkable. Miscellaneous: Unremarkable. No free air or significant free fluid. Pelvic Organs: Prostatomegaly Bones: Diffuse osseous metastasis. IMPRESSION: Thickening of the ascending colon. Correlate with colitis clinically. Diffuse osseous metastasis. Small right pleural effusion. Multiples subcentimeter low attenuation lesions throughout the liver some of which represent cysts, others appear to be more complex and may represent metastatic foci. Prostatomegaly. Stable subcentimeter left adrenal nodule. Dictated by Thom Denton MD @ 11/26/2016 10:30:33 PM Dictated by: Thom Denton MD @ 11/26/2016 22:31:03 (Electronic Signature) Report Signed by Proxy. [facility]ENTERAicha
[2016-11-28] MEDS: Ondansetron 4 MG/2 ML SDV IVPUSH PRN ×2 (00:04→12:30)
[2016-11-28] MEDS: HYDROmorphone 2 MG Tab PO PRN ×4 (01:36→20:30)
[2016-11-28] MEDS ORDERED: Bisacodyl 10 MG Supp RECTAL ONE (02:21)
[2016-11-28] MEDS: Ciprofloxacin in D5W 400 MG in Premix Bag 1 BAG IV SCH ×4 (03:13→16:41)
[2016-11-28] MEDS: metroNIDAZOLE/Normal Saline 500 MG in Premix Bag 1 BAG IV SCH ×4 (05:11→23:24)
[2016-11-28] MEDS: Sodium Chloride 0.9% 1,000 ML IV SCH (05:16)
[2016-11-28 05:43] LABS: CHLORIDE,CL 101 mmol/L (98-110); SODIUM,NA 134 mmol/L (136-146)
[2016-11-28] MEDS: Sucralfate Suspension 1 GM/10 ML Cup PO SCH ×4 (06:31→20:30)
[2016-11-28] MEDS ORDERED: Polyethylene Glycol 3350 Powder 17 GM Packet PO ONE (08:02)
[2016-11-28] MEDS: Morphine 15 MG Tab.ER PO SCH (09:40)
[2016-11-28] MEDS: Apixaban 5 MG Tab PO SCH ×2 (09:43→20:30)
[2016-11-28] MEDS: Pantoprazole 40 MG in Sodium Chloride 0.9% 10 ML IVPUSH SCH ×2 (09:46→20:30)
[2016-11-28] MEDS ORDERED: Magnesium Citrate Solution 296 ML Bottle PO ONE (11:16)
--- NOTE | 2016-11-28 12:02 | PCM.PN ---
- General Info Date of Service: 11/28/16 Admission Dx/Problem (Free Text): Admission Diagnosis/Problem Admission Diagnosis/Problem Abdominal pain Functional Status: Reports: Pain Controlled, Tolerating Diet, Ambulating, Urinating - Review of Systems HEENT: Reports: No Symptoms. Denies: Rhinitis Pulmonary: Reports: No Symptoms. Denies: Shortness of Breath Cardiovascular: Reports: No Symptoms Gastrointestinal: Reports: Abdominal Pain (lower abdomen ), Constipation. Denies: Nausea, Vomiting Genitourinary: Reports: No Symptoms. Denies: Dysuria, Frequency, Burning Neurological: Reports: No Symptoms Psychiatric: Reports: No Symptoms - Patient Data Vitals - Most Recent: Last Vital Signs Temp 98.4 F 11/28/16 08:42 Pulse 100 11/28/16 08:42 Resp 18 11/28/16 08:42 BP 156/96 H 11/28/16 08:42 Pulse Ox 96 11/28/16 08:42 Weight - Most Recent: 161.2 kg I&O - Last 24 Hours: Intake & Output 11/27/16 11/28/16 11/28/16 22:59 06:59 14:59 Intake Total 2438 1950 Output Total 1065 1300 Balance 1373 650 Lab Results Last 24 Hours: Laboratory Results - last 24 hr 11/27/16 11/28/16 11/28/16 Range/Units 16:02 04:37 04:37 WBC 3.57 L (4.0-11.0) K/uL RBC 3.39 L (4.50-5.90) M/uL Hgb 10.4 L (13.0-17.0) g/dL Hct 32.1 L (38.0-50.0) % MCV 94.7 (80.0-98.0) fL MCH 30.7 (27.0-32.0) pg MCHC 32.4 (31.0-37.0) g/dL RDW Std Deviation 51.9 (28.0-62.0) fl RDW Coeff of Enzo 15 (11.0-15.0) % Plt Count 180 (150-400) K/uL MPV 8.90 (7.40-12.00) fL Add Manual Diff YES Neutrophils % (Manual) 61 (48.0-80.0) % Band Neutrophils % 6 % Lymphocytes % (Manual) 12 L (16.0-40.0) % Monocytes % (Manual) 13 (0.0-15.0) % Eosinophils % (Manual) 8 H (0.0-7.0) % Nucleated RBC % 0.0 /100WBC Absolute Seg Neuts 2.2 (1.4-5.7) Band Neutrophils # 0.2 Lymphocytes # (Manual) 0.4 L (0.6-2.4) Monocytes # (Manual) 0.5 (0.0-0.8) Eosinophils # (Manual) 0.3 (0.0-0.7) Nucleated RBCs # 0 K/uL Lactate 0.7 (0.20-2.00) mmol/L Sodium 134 L (136-146) mmol/L Potassium 3.7 (3.5-5.1) mmol/L Chloride 101 (98-110) mmol/L Carbon Dioxide 28 (21-31) mmol/L BUN 12 (6.0-23.0) mg/dL Creatinine 1.0 (0.6-1.5) mg/dL Est Cr Clr Drug Dosing 73.94 mL/min Estimated GFR (MDRD) > 60.0 ml/min Glucose 106 (60-110) mg/dL Calcium 8.4 L (8.8-10.8) mg/dL H. pylori IgG Antibody (NEG) 11/28/16 Range/Units 04:37 WBC (4.0-11.0) K/uL RBC (4.50-5.90) M/uL Hgb (13.0-17.0) g/dL Hct (38.0-50.0) % MCV (80.0-98.0) fL MCH (27.0-32.0) pg MCHC (31.0-37.0) g/dL RDW Std Deviation (28.0-62.0) fl RDW Coeff of Enzo (11.0-15.0) % Plt Count (150-400) K/uL MPV (7.40-12.00) fL Add Manual Diff Neutrophils % (Manual) (48.0-80.0) % Band Neutrophils % % Lymphocytes % (Manual) (16.0-40.0) % Monocytes % (Manual) (0.0-15.0) % Eosinophils % (Manual) (0.0-7.0) % Nucleated RBC % /100WBC Absolute Seg Neuts (1.4-5.7) Band Neutrophils # Lymphocytes # (Manual) (0.6-2.4) Monocytes # (Manual) (0.0-0.8) Eosinophils # (Manual) (0.0-0.7) Nucleated RBCs # K/uL Lactate (0.20-2.00) mmol/L Sodium (136-146) mmol/L Potassium (3.5-5.1) mmol/L Chloride (98-110) mmol/L Carbon Dioxide (21-31) mmol/L BUN (6.0-23.0) mg/dL Creatinine (0.6-1.5) mg/dL Est Cr Clr Drug Dosing mL/min Estimated GFR (MDRD) ml/min Glucose (60-110) mg/dL Calcium (8.8-10.8) mg/dL H. pylori IgG Antibody NEGATIVE (NEG) Med Orders - Current: Current Medications Apixaban (Eliquis) 5 mg PO BID [facility] Last Admin: 11/28/16 09:43 Dose: 5 mg Hydromorphone HCl (Dilaudid) 0.5 mg IVPUSH Q2H PRN PRN Reason: Pain (severe 7-10) Last Admin: 11/27/16 15:39 Dose: 0.5 mg Hydromorphone HCl (Dilaudid) 2 mg PO Q4H PRN PRN Reason: Pain Last Admin: 11/28/16 06:34 Dose: 2 mg Sodium Chloride (Normal Saline) 1,000 mls @ 999 mls/hr IV ASDIRECTED [facility] Last Admin: 11/26/16 19:46 Dose: 999 mls/hr Sodium Chloride (Normal Saline) 1,000 mls @ 125 mls/hr IV ASDIRECTED [facility] Last Admin: 11/28/16 05:16 Dose: 125 mls/hr Pantoprazole Sodium 40 mg/ (Sodium Chloride) 10 mls @ 300 mls/hr IVPUSH Q12HR [facility] Last Admin: 11/28/16 09:46 Dose: 300 mls/hr Metronidazole 500 mg/ Premix 100 mls @ 100 mls/hr IV QID [facility] Last Admin: 11/28/16 11:54 Dose: 100 mls/hr Ciprofloxacin/Dextrose 400 mg/ (Premix) 200 mls @ 200 mls/hr IV Q12H [facility] Last Admin: 11/28/16 03:13 Dose: 200 mls/hr Morphine Sulfate (Ms Contin) 15 mg PO DAILY [facility] Last Admin: 11/28/16 09:40 Dose: 15 mg Ondansetron HCl (Zofran) 4 mg IVPUSH Q4H PRN PRN Reason: Pain Last Admin: 11/28/16 00:04 Dose: 4 mg Sucralfate (Carafate) 1 gm PO QIDACANDBED [facility] Last Admin: 11/28/16 11:53 Dose: 1 gm Discontinued Medications Apixaban (Eliquis) 10 mg PO DAILY [facility] Bisacodyl (Dulcolax) 10 mg RECTAL ONETIME ONE Stop: 11/27/16 14:43 Bisacodyl (Dulcolax) 10 mg RECTAL ONETIME ONE Stop: 11/28/16 02:22 Last Admin: 11/28/16 02:30 Dose: 10 mg Hydromorphone HCl (Dilaudid) 1 mg IVPUSH ONETIME ONE Stop: 11/26/16 19:27 Last Admin: 11/26/16 19:49 Dose: 1 mg Ciprofloxacin/Dextrose 400 mg/ (Premix) 200 mls @ 200 mls/hr IV Q12H [facility] Last Admin: 11/27/16 17:12 Dose: Not Given Iopamidol (Isovue Multipack-370 (76%)) 100 ml IVPUSH ONETIME STA Stop: 11/26/16 22:49 Last Admin: 11/26/16 22:48 Dose: 100 ml Magnesium Citrate (Citrate Of Magnesia) 296 ml PO ONETIME ONE Stop: 11/28/16 11:17 Last Admin: 11/28/16 11:52 Dose: 296 ml Morphine Sulfate (Morphine) 15 mg PO DAILY [facility] Last Admin: 11/27/16 08:47 Dose: 15 mg Ondansetron HCl (Zofran) 4 mg IVPUSH ONETIME ONE Stop: 11/26/16 19:27 Last Admin: 11/26/16 19:46 Dose: 4 mg Oxycodone HCl (Oxycodone) 5 mg PO Q4H PRN PRN Reason: Pain (moderate 4-6) Polyethylene Glycol (Miralax) 17 gm PO ONETIME ONE Stop: 11/28/16 08:03 Last Admin: 11/28/16 08:52 Dose: 17 gm - Exam General: Alert, Oriented, Cooperative, No Acute Distress Lungs: Clear to Auscultation, Normal Respiratory Effort Cardiovascular: Regular Rate, Regular Rhythm GI/Abdominal Exam: Normal Bowel Sounds, Soft, No Organomegaly, No Distention, No Abnormal Bruit, No Mass, Pelvis Stable, Tender (tenderness throughout) Extremities: Normal Inspection, Normal Range of Motion, Non-Tender, No Pedal Edema, Normal Capillary Refill Neurological: No New Focal Deficit Psy/Mental Status: Alert, Normal Affect, Normal Mood - Problem List & Annotations (1) Abdominal pain SNOMED Code(s): 28034714 Code(s): R10.9 - UNSPECIFIED ABDOMINAL PAIN Status: Acute Current Visit: Yes Qualifiers: Abdominal location: left lower quadrant Qualified Code(s): R10.32 - Left lower quadrant pain (2) Atrial fibrillation SNOMED Code(s): 12211306 Code(s): I48.91 - UNSPECIFIED ATRIAL FIBRILLATION Status: Chronic Current Visit: Yes (3) Metastatic lung cancer (metastasis from lung to other site) SNOMED Code(s): 115233766 Code(s): C34.90 - MALIGNANT NEOPLASM OF UNSP PART OF UNSP BRONCHUS OR LUNG Status: Chronic Current Visit: Yes (4) Anticoagulant long-term use SNOMED Code(s): 200010715 Code(s): Z79.01 - ASSISTED (CURRENT) USE OF ANTICOAGULANTS Status: Chronic Current Visit: Yes - Problem List Review Problem List Initiated/Reviewed/Updated: Yes - My Orders Last 24 Hours: My Active Orders 11/27/16 11:47 HYDROmorphone [Dilaudid] 2 mg PO Q4H PRN 11/27/16 14:45 Sucralfate [Carafate] 1 gm PO QIDACANDBED 11/27/16 15:00 Pantoprazole [ProTONIX IV] 40 mg Sodium Chloride 0.9% [Normal Saline] 10 ml IVPUSH Q12HR metroNIDAZOLE/Normal Saline [Flagyl 500 MG in NS 100 ML] 500 mg Premix Bag 1 bag IV QID 11/27/16 16:00 Ciprofloxacin in D5W [Cipro in D5W 400 MG/200 ML] 400 mg Premix Bag 1 bag IV Q12H 11/28/16 09:17 Enema [RC] ASDIRECTED - Plan Plan:: This 76 year old male with abdominal pain and nausea 1. Abdominal pain: Continue Protonix and Carafate along with Cipro and Flagyl for now. Will have EGD on Sunday with Dr. Brady, will stop Elqiuis tomorrow. 2. Constipation: may be contributing to pain, will give enema and Mag citrate today and get bowels moving. 3. Afib: Eliquis, stop Eliquis tomorrow. VTE prophylaxis: Eliquis. Dispo: 1-2 days. Possible DC later today if having BM helps with pain.
[2016-11-28] MEDS ORDERED: Finasteride 5 MG Tab PO SCH (13:15)
[2016-11-29] MEDS: Ondansetron 4 MG/2 ML SDV IVPUSH PRN (01:16)
[2016-11-29] MEDS: Ciprofloxacin in D5W 400 MG in Premix Bag 1 BAG IV SCH ×2 (03:38)
[2016-11-29] MEDS: metroNIDAZOLE/Normal Saline 500 MG in Premix Bag 1 BAG IV SCH (06:32)
[2016-11-29] MEDS: Sucralfate Suspension 1 GM/10 ML Cup PO SCH (06:32)
[2016-11-29] MEDS: Morphine 15 MG Tab.ER PO SCH (08:35)
[2016-11-29] MEDS: Pantoprazole 40 MG in Sodium Chloride 0.9% 10 ML IVPUSH SCH (08:37)
[2016-11-29 09:27] VITALS: BP 143/87
--- NOTE | 2016-11-29 09:30 | PCM.DCSUM1 ---
Discharge Summary - Hospital Course Brief History: This 76 year old male with pmh of metastatic lung ca and afib presented to the ED with concerns of abdominal pain and nausea. He reports having lower abdominal pain, which is cramping in nature, sharp and intermittent. He reports this has been a chronic issue and has a EGD scheduled for next week with Dr. Brady, general surgery here. He also had been seen by GI specialist in the past and treated for IBD. He denies any fevers, chest pain or SOB at home. He does report some constipation, no black or bloody bms. His appetite has been poor due to nausea. In the ED labwork WNL. Abd pelvis CT revealed thickening of ascending colom, diffuse osseous metastatic disease and small r pleural effusion. He was admitted observation for abdominal pain, colitis. - Discharge Data Discharge Date: 11/29/16 Discharge Disposition: Home, Self-Care 01 Condition: Good - Discharge Diagnosis/Problem(s) (1) Abdominal pain SNOMED Code(s): 87961210 ICD Code: R10.9 - UNSPECIFIED ABDOMINAL PAIN Status: Resolved Current Visit: Yes Qualifiers: Abdominal location: left lower quadrant Qualified Code(s): R10.32 - Left lower quadrant pain (2) Atrial fibrillation SNOMED Code(s): 78489098 ICD Code: I48.91 - UNSPECIFIED ATRIAL FIBRILLATION Status: Chronic Current Visit: Yes (3) Metastatic lung cancer (metastasis from lung to other site) SNOMED Code(s): 514385676 ICD Code: C34.90 - MALIGNANT NEOPLASM OF UNSP PART OF UNSP BRONCHUS OR LUNG Status: Chronic Current Visit: Yes (4) Anticoagulant long-term use SNOMED Code(s): 171387533 ICD Code: 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 Brady. - Discharge Plan Prescriptions/Med Rec: Ciprofloxacin HCl [Cipro] 500 mg PO BID #10 tablet metroNIDAZOLE [Flagyl] 500 mg PO Q8H #15 tablet Pantoprazole Sodium [Protonix] 40 mg PO BID #60 tablet. Sucralfate [Carafate] 1 gm PO QIDACANDBED #120 tablet Home Medications: Home Meds Finasteride 5 mg PO DAILY 04/07/16 [History] Ondansetron [Zofran] 4 mg PO DAILY PRN 11/26/16 [History] Morphine Sulfate [Morphine Sulfate ER] 15 mg PO DAILY 11/27/16 [History] Apixaban [Eliquis] 5 mg PO BID #0 11/29/16 [Rx] Ciprofloxacin HCl [Cipro] 500 mg PO BID #10 tablet 11/29/16 [Rx] Pantoprazole Sodium [Protonix] 40 mg PO BID #60 tablet. 11/29/16 [Rx] Sucralfate [Carafate] 1 gm PO QIDACANDBED #120 tablet 11/29/16 [Rx] amLODIPine [Norvasc] 10 mg PO BEDTIME #0 11/29/16 [Rx] metroNIDAZOLE [Flagyl] 500 mg PO Q8H #15 tablet 11/29/16 [Rx] Patient Handouts: Abdominal Pain, Adult, Sucralfate tablets, Pantoprazole tablets, Ciprofloxacin tablets, Metronidazole tablets or capsules Referrals: Thom Reyes MD [Primary Care Provider] - 12/06/16 12:30 pm - Discharge Summary/Plan Comment DC Time >30 min.: No Discharge Summary/Plan Comment: Discharge Diagnoses: Gastritis Constipation Lung ca Afib Chronic anticoagulation [facility] was admitted and treated for possible colitis. Dr. Whitney and Dr. Brady reveiwed CT scan and felt colitis was less likely, but found a large amount of stool in colon. We have been treating with Cipro and Flagyl as precaution. We also have been giving Carafate with meals and Protonix BID for possible Gastritis. His lower abdominal pain has improved but continues to have reflux type burning and poor appetite, which is why he sought out Dr. Brady for EGD in the first place. He continues to have some constipation, but has had one BM yesterday. Today he is wanting to be discharged and is planning on seeing oncology and have treatment. He will be sent home on Cipro and Flagyl x 5 more days, Protonix and Carafate x 1 month. He will have EGD on Sunday. Increase water intake and continue with bowel regimen at home. He had previously stopped taking senakot which was helping with his constipation at home. He is to follow up with PCP in 1 week and see Oncology today. He is to return to ED or clinic if concerns should arise. - General Info Date of Service: 11/29/16 Admission Dx/Problem (Free Text: Admission Diagnosis/Problem Admission Diagnosis/Problem Abdominal pain Subjective Update: Abdominal pain is better, had BM yesterday but not since then. No chest pain or SOB. Continues to have acid feeling in stomach and throat. Functional Status: Reports: Pain Controlled, Tolerating Diet (decreased appetite.), Ambulating, Urinating - Review of Systems Pulmonary: Reports: No Symptoms. Denies: Shortness of Breath Cardiovascular: Reports: No Symptoms. Denies: Chest Pain, Palpitations, Edema Gastrointestinal: Reports: Abdominal Pain, Constipation, Other (GERD). Denies: Nausea, Vomiting Genitourinary: Reports: No Symptoms. Denies: Dysuria, Frequency, Burning Skin: Reports: No Symptoms Neurological: Denies: Confusion - Patient Data Vitals - Most Recent: Last Vital Signs Temp 98.7 F 11/29/16 08:00 Pulse 101 H 11/29/16 08:00 Resp 19 11/29/16 08:00 BP 143/87 H 11/29/16 08:00 Pulse Ox 94 L 11/29/16 08:00 Weight - Most Recent: 161.2 kg I&O - Last 24 hours: Intake & Output 11/28/16 11/29/16 11/29/16 22:59 06:59 14:59 Intake Total 1040 750 Output Total 1875 1300 Balance -835 -550 Med Orders - Current: Current Medications Hydromorphone HCl (Dilaudid) 0.5 mg IVPUSH Q2H PRN PRN Reason: Pain (severe 7-10) Last Admin: 11/27/16 15:39 Dose: 0.5 mg Hydromorphone HCl (Dilaudid) 2 mg PO Q4H PRN PRN Reason: Pain Last Admin: 11/28/16 20:30 Dose: 2 mg Pantoprazole Sodium 40 mg/ (Sodium Chloride) 10 mls @ 300 mls/hr IVPUSH Q12HR [facility] Last Admin: 11/29/16 08:37 Dose: 300 mls/hr Metronidazole 500 mg/ Premix 100 mls @ 100 mls/hr IV QID [facility] Last Admin: 11/29/16 06:32 Dose: 100 mls/hr Ciprofloxacin/Dextrose 400 mg/ (Premix) 200 mls @ 200 mls/hr IV Q12H [facility] Last Admin: 11/29/16 03:38 Dose: 200 mls/hr Morphine Sulfate (Ms Contin) 15 mg PO DAILY [facility] Last Admin: 11/29/16 08:35 Dose: 15 mg Ondansetron HCl (Zofran) 4 mg IVPUSH Q4H PRN PRN Reason: Pain Last Admin: 11/29/16 01:16 Dose: 4 mg Finasteride 5mg 1 each PO DAILY [facility] Last Admin: 11/29/16 08:36 Dose: Not Given Sucralfate (Carafate) 1 gm PO QIDACANDBED [facility] Last Admin: 11/29/16 06:32 Dose: 1 gm Discontinued Medications Apixaban (Eliquis) 10 mg PO DAILY [facility] Apixaban (Eliquis) 5 mg PO BID [facility] Last Admin: 11/28/16 20:30 Dose: 5 mg Bisacodyl (Dulcolax) 10 mg RECTAL ONETIME ONE Stop: 11/27/16 14:43 Bisacodyl (Dulcolax) 10 mg RECTAL ONETIME ONE Stop: 11/28/16 02:22 Last Admin: 11/28/16 02:30 Dose: 10 mg Finasteride (Proscar) 5 mg PO DAILY [facility] Last Admin: 11/28/16 19:38 Dose: Not Given Hydromorphone HCl (Dilaudid) 1 mg IVPUSH ONETIME ONE Stop: 11/26/16 19:27 Last Admin: 11/26/16 19:49 Dose: 1 mg Sodium Chloride (Normal Saline) 1,000 mls @ 999 mls/hr IV ASDIRECTED [facility] Last Admin: 11/26/16 19:46 Dose: 999 mls/hr Sodium Chloride (Normal Saline) 1,000 mls @ 125 mls/hr IV ASDIRECTED [facility] Last Admin: 11/28/16 05:16 Dose: 125 mls/hr Ciprofloxacin/Dextrose 400 mg/ (Premix) 200 mls @ 200 mls/hr IV Q12H [facility] Last Admin: 11/27/16 17:12 Dose: Not Given Iopamidol (Isovue Multipack-370 (76%)) 100 ml IVPUSH ONETIME STA Stop: 11/26/16 22:49 Last Admin: 11/26/16 22:48 Dose: 100 ml Magnesium Citrate (Citrate Of Magnesia) 296 ml PO ONETIME ONE Stop: 11/28/16 11:17 Last Admin: 11/28/16 11:52 Dose: 296 ml Morphine Sulfate (Morphine) 15 mg PO DAILY [facility] Last Admin: 11/27/16 08:47 Dose: 15 mg Ondansetron HCl (Zofran) 4 mg IVPUSH ONETIME ONE Stop: 11/26/16 19:27 Last Admin: 11/26/16 19:46 Dose: 4 mg Oxycodone HCl (Oxycodone) 5 mg PO Q4H PRN PRN Reason: Pain (moderate 4-6) Polyethylene Glycol (Miralax) 17 gm PO ONETIME ONE Stop: 11/28/16 08:03 Last Admin: 11/28/16 08:52 Dose: 17 gm - Exam General: Reports: Alert, Oriented, Cooperative, No Acute Distress Neck: Reports: Supple Lungs: Reports: Clear to Auscultation, Normal Respiratory Effort Cardiovascular: Reports: Regular Rate, Regular Rhythm GI/Abdominal Exam: Normal Bowel Sounds, Soft, No Distention, No Mass, Tender ( scant tenderness to lower abdomen.). No: Guarding, Rigid, Rebound Extremities: Normal Inspection Neurological: Reports: No New Focal Deficit Psy/Mental Status: Reports: Alert, Normal Affect, Normal Mood *Q Meaningful Use (DIS) - VTE *Q VTE Criteria *Q: - Stroke *Q Stroke Criteria *Q: - AMI *Q AMI Criteria *Q:
== END 2016-11-29 12:00 | disposition home or self-care (01) ==
LOC: MW.ED 18:57 → MW.MS 23:02
PROVIDERS: ADMIT Internal Medicine; ATTEND Internal Medicine
DX: K29.70 Gastritis, unspecified, without bleeding (principal); K59.00 Constipation, unspecified; I48.91 Unspecified atrial fibrillation; C34.90 Malignant neoplasm of unspecified part of unspecified bronchus or lung; Z87.891 Personal history of nicotine dependence; Z79.01 Long term (current) use of anticoagulants; Z79.899 Other long term (current) drug therapy; Z88.2 Allergy status to sulfonamides
CPT/HCPCS: 36415; 71010; 74177; 80048; 80053; 81001; 82150; 83605; 83690; 85025; 85027; 86677; 93005; 96361; 96365; 96366; 96367; 96375; 96376; 99285; A9270; C9113; G0378; J0744; J1170; J2405; J7040; Q9967; 96374; 99283

== ENCOUNTER 2016-12-04 09:52 | Day surgery (SDC) | payer MEDICARE, OTHER ==
[~2016-12-04 09:52] MED LIST: Lactated Ringers 1,000 ML IV SCH; Midazolam 1 MG/ML 2 ML SDV ONE; Propofol 200 MG/20 ML SDV ONE; fentaNYL 100 MCG/2 ML SDV ONE
--- NOTE | 2016-12-04 10:54 | PCM.PREANE ---
Preanesthetic Assessment - Anesthesia/Transfusion/Family Hx Anesthesia History: Prior Anesthesia Without Reaction Family History of Anesthesia Reaction: No Transfusion History: No Prior Transfusion(s) - Review of Systems General: Weakness, Fatigue Pulmonary: No Symptoms Cardiovascular: No Symptoms Gastrointestinal: No Symptoms Neurological: No Symptoms - Physical Assessment O2 Sat by Pulse Oximetry: 97 Respiratory Rate: 16 Vital Signs: Last Vital Signs Temp 36.2 C 12/04/16 10:05 Pulse 102 H 12/04/16 10:05 Resp 16 12/04/16 10:05 BP 138/73 12/04/16 10:05 Pulse Ox 97 12/04/16 10:05 Height: 1.91 m Weight: 79.832 kg ASA Class: 3 Mental Status: Alert & Oriented x3 Airway Class: Mallampati = 2 Dentition: Reports: Normal Dentition ROM/Head Extension: Full Lungs: Clear to Auscultation, Normal Respiratory Effort Cardiovascular: Regular Rate, Regular Rhythm - Allergies Allergies/Adverse Reactions: Allergies Allergy/AdvReac Type Severity Reaction Status Date / Time Sulfa (Sulfonamide Allergy Vomiting Verified 11/29/16 13:35 Antibiotics) sulfasalazine Allergy Vomiting Verified 11/29/16 13:35 [From Azulfidine] - Acknowledgements Anesthesia Type Planned: MAC Pt an Appropriate Candidate for the Planned Anesthesia: Yes Alternatives and Risks of Anesthesia Discussed w Pt/Guardian: Yes Pt/Guardian Understands and Agrees with Anesthesia Plan: Yes Additional Comments: PMH: hx of afib, on eliquis, stopped 6 day ago; HTN, ibs, HX OF crohns dz controlled with meds. PreAnesthesia Questionnaire HEENT History: Reports: None Other HEENT History: wears glasses Cardiovascular History: Reports: Hypertension Other Cardiovascular History: not taking antihypertensives now, states BP is low Respiratory History: Reports: Other (See Below) Other Respiratory History: hx of metastatic cancer in right upper lobe, recently finished chemo and radiation....complains of some dyspnea Gastrointestinal History: Reports: Chronic Constipation, GERD, Inflammatory Bowel Disease Other Gastrointestinal History: hx of ulcerative colitis/Crohns Genitourinary History: Reports: Prostate Disorder Musculoskeletal History: Reports: Back Pain, Chronic Neurological History: Reports: None Psychiatric History: Reports: None Endocrine/Metabolic History: Reports: None Hematologic History: Reports: Anticoagulation Therapy Immunologic History: Reports: None Oncologic (Cancer) History: Reports: Lung Dermatologic History: Reports: None - Infectious Disease History Infectious Disease History: Reports: None - Past Surgical History GI Surgical History: Reports: Colonoscopy Male Surgical History: Reports: Prostatectomy, Vasectomy - SUBSTANCE USE Smoking Status *Q: Former Smoker Tobacco Use Within Last Twelve Months: No Second Hand Smoke Exposure: No Days Per Week of Alcohol Use: 1 Number of Drinks Per Day: 1 Total Drinks Per Week: 1 Recreational Drug Use History: No - HOME MEDS Home Medications: Home Meds Finasteride 5 mg PO DAILY 04/07/16 [History] Apixaban [Eliquis] 5 mg PO BID #0 11/29/16 [Rx] Metoclopramide [Reglan] 10 mg PO BEDTIME 11/29/16 [History] Multivitamin [Men's Multi-Vitamin] 1 each PO DAILY 11/29/16 [History] Sennosides [Senna] 2 tab PO QID 11/29/16 [History] - CURRENT (IN HOUSE) MEDS Current Meds: Current Medications Lactated Ringer's (Ringers, Lactated) 1,000 mls @ 125 mls/hr IV ASDIRECTED [facility] Last Admin: 12/04/16 10:09 Dose: 125 mls/hr Discontinued Medications Fentanyl (Sublimaze) Confirm Administered Dose 100 mcg .ROUTE .STK-MED ONE Stop: 12/04/16 07:06 Lidocaine HCl (Xylocaine-Mpf 1%) Confirm Administered Dose 5 ml .ROUTE .STK-MED ONE Stop: 12/04/16 07:06 Midazolam HCl (Versed 1 Mg/Ml) Confirm Administered Dose 2 mg .ROUTE .STK-MED ONE Stop: 12/04/16 07:06 Propofol (Diprivan 20 Ml) Confirm Administered Dose 200 mg .ROUTE .STK-MED ONE Stop: 12/04/16 07:06
[2016-12-04] MEDS ORDERED: fentaNYL 100 MCG/2 ML SDV ONE (11:17)
--- NOTE | 2016-12-04 11:34 | PCM.OPNOTE ---
- General Post-Op/Procedure Note Date of Surgery/Procedure: 12/04/16 Operative Procedure(s): Esophagogastroduodenoscopy with biopsy Pre Op Diagnosis: Epigastric pain Post-Op Diagnosis: Acute gastritis with pyloric channel ulcer Anesthesia Technique: MAC (ASA III) Primary Surgeon: Roman Brady Condition: Good Free Text/Narrative:: Dictation [id number] CPT CODE [id number]
[2016-12-04] MEDS ORDERED: Lactated Ringers 1,000 ML IV SCH (11:45)
--- NOTE | 2016-12-04 12:14 | PCM48HPAN ---
Post Anesthesia Note - EVALUATION WITHIN 48HRS OF ANESTHETIC Vital Signs in Normal Range: Yes Patient Participated in Evaluation: Yes Respiratory Function Stable: Yes Airway Patent: Yes Cardiovascular Function Stable: Yes Hydration Status Stable: Yes Pain Control Satisfactory: Yes Nausea and Vomiting Control Satisfactory: Yes Mental Status Recovered: Yes
--- NOTE | 2016-12-04 12:14 | PCM.POSTAN ---
POST ANESTHESIA ASSESSMENT - MENTAL STATUS Mental Status: Alert, Oriented - RESPIRATORY Respiratory Status: Respiratory Rate WNL, Airway Patent, O2 Saturation Stable - CARDIOVASCULAR CV Status: Pulse Rate WNL, Blood Pressure Stable - GASTROINTESTINAL GI Status: No Symptoms - POST OP HYDRATION Hydration Status: Adequate & Stable
[2016-12-04 12:21] VITALS: BP 134/81
--- NOTE | 2016-12-04 17:53 | OR ---
SURGEON: Roman Brady M.D. DATE OF PROCEDURE: 12/04/2016 OPERATION PERFORMED: Esophagogastroduodenoscopy with biopsy. ANESTHESIA: MAC. ASA CLASSIFICATION: III. PREOPERATIVE DIAGNOSIS: Persistent epigastric pain. POSTOPERATIVE DIAGNOSIS: Gastritis with pyloric channel ulcer. DESCRIPTION OF PROCEDURE: The patient was taken to the endoscopy room, positioned on the endoscopy table in the supine position. Time-out was called for appropriate identification of the patient and procedure. Monitored anesthesia care was provided. A bite block was placed between the patient's teeth. The gastroscope was inserted into the mouth and advanced without difficulty through the esophagus and stomach into the duodenum, where examination was carried out in a retrograde fashion. No blood was seen in the duodenum. Some old blood was seen within the stomach and there was a pyloric channel ulcer. The antrum shows acute inflammatory changes. Biopsies of the antrum were obtained. The gastroscope was retroflexed to visualize the proximal stomach. The greater and lesser curvatures were well visualized. No tumors or polyps were seen and no ulcerations were noted. The gastroscope was then straightened and slowly withdrawn. The GE junction was well defined and showed no acute inflammatory changes. The vocal cords were visualized as the scope was withdrawn and noted to move symmetrically. The gastroscope was then removed with the patient having tolerated the procedure well. He was taken to recovery room in stable condition. SHANNAN IRWIN /[id number]
== END 2016-12-04 12:34 | disposition home or self-care (01) ==
LOC: MW.SDS 09:52
PROVIDERS: ATTEND Surgery
DX: K29.50 Unspecified chronic gastritis without bleeding (principal); I10 Essential (primary) hypertension; Z79.899 Other long term (current) drug therapy; Z88.2 Allergy status to sulfonamides; Z98.890 Other specified postprocedural states; Z98.52 Vasectomy status; Z87.891 Personal history of nicotine dependence
CPT/HCPCS: 43239; J2250; J3010; J7120; 00740; 88305; 88312; J2704

== ENCOUNTER 2016-12-12 07:40 | Day surgery (SDC) | payer MEDICARE, OTHER ==
[~2016-12-12 07:40] MED LIST changes: +Bupivacaine 0.25%/EPINEPHrine 1:200,000 10 ML SDV ONE; -Midazolam 1 MG/ML 2 ML SDV ONE; -Propofol 200 MG/20 ML SDV ONE; +ceFAZolin 1 GM in Premix Bag 1 BAG IV ONE; -fentaNYL 100 MCG/2 ML SDV ONE
--- NOTE | 2016-12-12 08:10 | PCM.PREANE ---
Preanesthetic Assessment - Anesthesia/Transfusion/Family Hx Anesthesia History: Prior Anesthesia Without Reaction Family History of Anesthesia Reaction: No Transfusion History: No Prior Transfusion(s) - Review of Systems General: Weakness, Fatigue Cardiovascular: No Symptoms Gastrointestinal: Abdominal Pain, Decreased Appetite Neurological: No Symptoms Other: Reports: None - Physical Assessment NPO Status Date: 12/11/16 O2 Sat by Pulse Oximetry: 95 Respiratory Rate: 16 Vital Signs: Last Vital Signs Temp 36.1 C 12/12/16 08:00 Pulse 63 12/12/16 08:00 Resp 16 12/12/16 08:00 BP 126/93 H 12/12/16 08:00 Pulse Ox 95 12/12/16 08:00 Height: 1.91 m Weight: 75.296 kg ASA Class: 3 Mental Status: Alert & Oriented x3 Airway Class: Mallampati = 3 Dentition: Reports: Normal Dentition Mouth Opening Finger Breadths: 3 (limited opening) ROM/Head Extension: Full Lungs: Clear to Auscultation, Normal Respiratory Effort Cardiovascular: Regular Rate, Regular Rhythm - Allergies Allergies/Adverse Reactions: Allergies Allergy/AdvReac Type Severity Reaction Status Date / Time Sulfa (Sulfonamide Allergy Vomiting Verified 12/11/16 11:46 Antibiotics) sulfasalazine Allergy Vomiting Verified 12/11/16 11:46 [From Azulfidine] - Anesthesia Plan Pre-Op Medication Ordered: None - Acknowledgements Anesthesia Type Planned: General Anesthesia Pt an Appropriate Candidate for the Planned Anesthesia: Yes Alternatives and Risks of Anesthesia Discussed w Pt/Guardian: Yes Pt/Guardian Understands and Agrees with Anesthesia Plan: Yes PreAnesthesia Questionnaire HEENT History: Reports: None, Hard of Hearing Other HEENT History: wears glasses, has hearing aides but doesn't wear them Cardiovascular History: Reports: Afib, Hypertension Other Cardiovascular History: not taking antihypertensives now, states BP is low Respiratory History: Reports: SOB, Other (See Below) Other Respiratory History: lung ca Gastrointestinal History: Reports: GERD Other Gastrointestinal History: hx of ulcerative colitis/Crohns, recent dx of duodinal ulcer Genitourinary History: Musculoskeletal History: Reports: Back Pain, Chronic Neurological History: Reports: Migraines Other Neuro History: no migranes for many years Psychiatric History: Reports: None Endocrine/Metabolic History: Reports: None Hematologic History: Reports: Anticoagulation Therapy Immunologic History: Reports: None Oncologic (Cancer) History: Reports: Lung Dermatologic History: Reports: None - Infectious Disease History Infectious Disease History: Reports: None - Past Surgical History Head Surgeries/Procedures: Reports: None HEENT Surgical History: Reports: None Cardiovascular Surgical History: Reports: None GI Surgical History: Reports: Colonoscopy, EGD Male Surgical History: Reports: TURP-Transurethral Resection of Prostate, Vasectomy - SUBSTANCE USE Smoking Status *Q: Former Smoker Tobacco Use Within Last Twelve Months: No Second Hand Smoke Exposure: No Days Per Week of Alcohol Use: 1 Number of Drinks Per Day: 1 Total Drinks Per Week: 1 Recreational Drug Use History: No - HOME MEDS Home Medications: Home Meds Finasteride 5 mg PO DAILY 04/07/16 [History] Apixaban [Eliquis] 5 mg PO BID #0 11/29/16 [Rx] Multivitamin [Men's Multi-Vitamin] 1 each PO DAILY 11/29/16 [History] Sennosides [Senna] 2 tab PO QID 11/29/16 [History] Omeprazole 40 mg PO BIDAC 12/11/16 [History] Sucralfate 1 gm PO ASDIRECTED 12/11/16 [History] - CURRENT (IN HOUSE) MEDS Current Meds: Current Medications Lactated Ringer's (Ringers, Lactated) 1,000 mls @ 125 mls/hr IV ASDIRECTED [facility] Last Admin: 12/12/16 08:02 Dose: 125 mls/hr Discontinued Medications Bupivacaine HCl/Epinephrine Bitart (Marcaine 0.25%/Epinephrine 1:200,000) Confirm Administered Dose 20 ml .ROUTE .STK-MED ONE Stop: 12/12/16 07:32 Cefazolin Sodium/Dextrose 1 gm (/ Premix) 50 mls @ 100 mls/hr IV ONETIME ONE Stop: 12/12/16 05:29
[2016-12-12] MEDS ORDERED: Propofol 200 MG/20 ML SDV ONE (08:39)
[2016-12-12] MEDS ORDERED: fentaNYL 100 MCG/2 ML SDV ONE (08:39)
[2016-12-12] MEDS ORDERED: Lidocaine 2% 5 ML SDV ONE ×2 (08:39→10:33)
[2016-12-12] MEDS ORDERED: Midazolam 1 MG/ML 2 ML SDV ONE (08:39)
--- NOTE | 2016-12-12 11:32 | PCM.OPNOTE ---
- General Post-Op/Procedure Note Date of Surgery/Procedure: 12/12/16 Operative Procedure(s): peg Findings: 1) light illuminance was observed, and 2) one to one indentation was observed; 3 ) postop gt button was noted in good position; 4) tube secured at 3.5 cm from skin [id number] Pre Op Diagnosis: ftt Post-Op Diagnosis: ftt Anesthesia Technique: General ET Tube Primary Surgeon: Jayjay Quintero Logistics Manager: Donna Whitney Complications: None Condition: Good
--- NOTE | 2016-12-12 11:54 | PCM.POSTAN ---
POST ANESTHESIA ASSESSMENT - MENTAL STATUS Mental Status: Oriented, Somnolent - RESPIRATORY Respiratory Status: Respiratory Rate WNL, Airway Patent, O2 Saturation Stable - CARDIOVASCULAR CV Status: Pulse Rate WNL, Blood Pressure Stable - GASTROINTESTINAL GI Status: No Symptoms - POST OP HYDRATION Hydration Status: Adequate & Stable
[2016-12-12 13:25] VITALS: BP 104/50
--- NOTE | 2016-12-12 17:58 | OR ---
SURGEON: Jayjay Quintero MD DATE OF PROCEDURE: 12/12/2016 PREOPERATIVE DIAGNOSIS: Failure to thrive. POSTOPERATIVE DIAGNOSIS: Failure to thrive. PROCEDURE PERFORMED: Percutaneous endoscopic gastrostomy. ATHLETE MANAGER: Dr. Whitney. COMPLICATIONS: None. FINDING: Light illuminance was observed upon EGD and one-to-one indentation was observed upon EGD and G-tube button was observed in good position and tube secured at 3.5 cm from skin. PROCEDURE IN DETAIL: The patient was taken to the operating room and placed in a supine position. Upon induction of general endotracheal intubation, a well lubricated EGD scope was gently inserted through the oropharynx and down the esophagus into the stomach. The stomach was inflated for at least 1-2 minutes and then light illuminance was observed in the greater curvature and one-to-one indentation was observed. Then Dr. Whitney proceeded to putting the feeding tube. Please refer to her dictation for details. In summary, postop re-examination, G-tube was in good position and tube secured at skin 3.5 cm from the skin. The patient tolerated the procedure well. There were no intraoperative complications. Dr. Quintero was present through the whole procedure. Postop tube should be okay to use, 12 hours from now, and we will start with D5W water 20 mL/hour and go all the way to the goal every 2 hours, and then if the patient tolerates, up to 40 mL/hour, then the G-tube is ready to be used on a routine basis. The patient will be seen in my office one week from today to check for wound. ELLEN / ALIDA /[id number]
--- NOTE | 2016-12-13 12:02 | OR ---
SURGEON: FELIPE WHITNEY MD DATE OF PROCEDURE: 12/12/2016 PREOPERATIVE DIAGNOSIS: Failure to thrive. POSTOPERATIVE DIAGNOSIS: Failure to thrive. PROCEDURE PERFORMED: PEG tube placement. SURGEON: Dr. Jayjay Quintero. STRETCHER DRIER OPERATOR: Dr. Felipe Whitney. Please see Dr. Quintero's dictation for further information. PROCEDURE IN DETAIL: The patient was brought into the OR and placed on the OR table in supine position. A time-out was completed verifying the patient's name, age, date of , allergies, and procedure to be performed. General endotracheal anesthesia was induced. Dr. Jayjay Quintero placed a bite block in the patient's mouth and advanced an endoscope under direct visualization to the level of the antrum of the stomach. The patient was noted to have the pre-pyloric ulcer that was noted on his previous endoscopy. The scope was used to transilluminate through the abdominal wall. Good light was seen. With finger pressure, we were able to locate a spot in the proximal antrum well away from the ulcer for placement of the PEG tube. The abdomen was prepped and draped in the usual standard fashion. I was able to pass a needle easily into the stomach. With withdrawal of the needle, no air bubbles were noted, which indicates that there was no bowel between the stomach wall and the abdominal wall. I anesthetized the skin with 1% lidocaine. A #11 blade was used to make a 1 cm incision over the area of transillumination. A guide needle was placed through the abdominal wall into the stomach. The needle was removed and the sheath left in place. A wire was then placed into the stomach and grasped with a looping device passed through the endoscope from above. This wire was then pulled out through the mouth. The feeding tube was then looped around that and then pulled back through the esophagus into the stomach to a distance of 2.5 cm on the skin. The bumper was snug, but was not placed under any undue tension. Dr. Jayjay Quintero placed the endoscope back into the patient's mouth and passed under direct visualization to the level of the stomach and took photographs of the bumper in the antrum. The feeding tube was then secured with a bumper to 2.5 cm at the skin. The bumper was then secured with 2-0 silk sutures. Sterile dressings were placed under the bumper. The feeding tube was then left open to gravity. The patient tolerated the procedure well and was taken to PACU in stable condition. See Dr. Jayjay Quintero's notes for any further details. ANNABEL IRWIN /[id number]
== END 2016-12-12 13:25 | disposition home or self-care (01) ==
LOC: MW.SDS 07:40
PROVIDERS: ATTEND Surgery
DX: R62.7 Adult failure to thrive (principal); I10 Essential (primary) hypertension; Z88.2 Allergy status to sulfonamides; Z79.899 Other long term (current) drug therapy; Z98.890 Other specified postprocedural states; Z98.52 Vasectomy status; Z87.891 Personal history of nicotine dependence
CPT/HCPCS: 43246; J0690; J2250; J3010; J7120; 00700; J2704

== ENCOUNTER 2017-01-22 12:29 | Inpatient (IN) | payer MEDICARE, OTHER ==
[2017-01-22] MEDS ORDERED: Haloperidol Lactate 2 MG/ML Oral Soln 15 ML Bottle PO PRN (13:12)
[2017-01-22] MEDS ORDERED: Morphine Oral Concentrate 20 MG/ML 30 ML Bottle SL PRN (13:12)
[2017-01-22] MEDS ORDERED: Magnesium Hydroxide 400 MG/5 ML Susp 30 ML Cup PO PRN (13:16)
[2017-01-22] MEDS ORDERED: oxyCODONE 5 MG Tab PO PRN (13:16)
[2017-01-22] MEDS ORDERED: Sennosides 8.6 MG Tab PO PRN (13:16)
--- NOTE | 2017-01-22 13:23 | PCM.HP ---
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 This morning patient was complaining of pain all over 10/10 with Moprhine SL they were able to bring it down to 6/10 but he continues to have pain. He was transferred to the hospital via ambulance this morning. He currently is resting in bed, appears very cachectic. He is alert and oriented for the most part. Drifts into sleep easily. Reports a lot of pain to his bottom. Hospice reports he had stage 1 pressure ulcer to coccyx, but he has not been moving much at home and there was some noted blood to his underwear today, but she was unable to assess it due to his weakness and inability to stand. At this time, he is in a lot of pain. I will defer assessment until patient pain is more under control. Patient to be admitted inpatient today for intractable pain related to bone mets and lung cancer. Will place IV for better pain control and trial IV Morphine and some Toradol for bone pain. He is requesting locke to be placed due to urinary retention as well. - Related Data Allergies/Adverse Reactions: Allergies Allergy/AdvReac Type Severity Reaction Status Date / Time Sulfa (Sulfonamide Allergy Vomiting Verified 12/11/16 11:46 Antibiotics) sulfasalazine Allergy Vomiting Verified 12/11/16 11:46 [From Azulfidine] Home Medications: Home Meds Finasteride 5 mg PO DAILY 04/07/16 [History] Multivitamin [Men's Multi-Vitamin] 1 each PO DAILY 11/29/16 [History] Sennosides [Senna] 2 tab PO QID 11/29/16 [History] Omeprazole 40 mg PO BIDAC 12/11/16 [History] Sucralfate 1 gm PO ASDIRECTED 12/11/16 [History] Past Medical History HEENT History: Reports: None, Hard of Hearing Other HEENT History: wears glasses, has hearing aides but doesn't wear them Cardiovascular History: Reports: Afib, Hypertension Respiratory History: Reports: SOB, Other (See Below) Other Respiratory History: lung ca Gastrointestinal History: Reports: GERD Other Gastrointestinal History: hx of ulcerative colitis/Crohns, recent dx of duodinal ulcer Genitourinary History: Musculoskeletal History: Reports: Back Pain, Chronic Neurological History: Reports: Migraines Other Neuro History: no migranes for many years Psychiatric History: Reports: None Endocrine/Metabolic History: Reports: None Hematologic History: Reports: Anticoagulation Therapy Immunologic History: Reports: None Oncologic (Cancer) History: Reports: Lung Dermatologic History: Reports: None - Infectious Disease History Infectious Disease History: Reports: None - Past Surgical History Head Surgeries/Procedures: Reports: None HEENT Surgical History: Reports: None Cardiovascular Surgical History: Reports: None GI Surgical History: Reports: Colonoscopy, EGD, Other (See Below) (PEG tube placement 12/14/2016) Male Surgical History: Reports: TURP-Transurethral Resection of Prostate, Vasectomy Social & Family History - Family History Family Medical History: Noncontributory - Tobacco Use Smoking Status *Q: Former Smoker Years of Tobacco use: 20 Packs/Tins Daily: 2 Used Tobacco, but Quit: No Second Hand Smoke Exposure: No - Caffeine Use Caffeine Use: Reports: Coffee - Alcohol Use Days Per Week of Alcohol Use: 1 Number of Drinks Per Day: 1 Total Drinks Per Week: 1 - Recreational Drug Use Recreational Drug Use: No Drug Use in Last 12 Months: No H&P Review of Systems - Review of Systems: Review Of Systems: See Below General: Reports: Weakness, Fatigue (generalized weakness), Weight Loss Pulmonary: Denies: Shortness of Breath, Cough, Sputum Cardiovascular: Denies: Chest Pain Gastrointestinal: Denies: Abdominal Pain, Black Stool, Bloody Stool Genitourinary: Reports: Retention (unale to void since yesterday) Musculoskeletal: Reports: Other (pain to all over) Skin: Reports: Wound (reports pain to bottom. ) Psychiatric: Reports: No Symptoms Neurological: Reports: No Symptoms Exam - Exam Exam: See Below - Exam General: Alert, Oriented, Cooperative, Sedated (easily drifts off to sleep. ), Other (cachectic in appearance. ) HEENT: Mucosa Moist & [place], Posterior Pharynx Clear, Pupils Reactive Lungs: Clear to Auscultation, Normal Respiratory Effort Cardiovascular: Regular Rate, Regular Rhythm GI/Abdominal Exam: Normal Bowel Sounds, Soft, Non-Tender, Other (PEG to L mid quadrant. requests not to use.) Extremities: Normal Inspection, Normal Range of Motion, Non-Tender, No Pedal Edema, Normal Capillary Refill Skin: Wound (unable to view bottom due to pain at this time, will allow better pain control and assess) Neuro Extensive - Mental Status: Alert, Oriented x3, Normal Mood/Affect Psychiatric: Alert, Normal Affect, Normal Mood *Q Meaningful Use (ADM) - VTE *Q VTE Criteria *Q: - Stroke *Q Stroke Criteria *Q: - AMI *Q AMI Criteria *Q: - Problem List (1) Comfort measures only status SNOMED Code(s): 40910358573906 ICD Code: Z51.5 - ENCOUNTER FOR PALLIATIVE CARE Status: Acute Current Visit: Yes (2) Intractable pain SNOMED Code(s): 35273263 ICD Code: R52 - PAIN, UNSPECIFIED Status: Acute Current Visit: Yes (3) Stage II pressure ulcer SNOMED Code(s): 914259941 ICD Code: L89.92 - PRESSURE ULCER OF UNSPECIFIED SITE, STAGE 2 Status: Acute Current Visit: Yes Qualifiers: Pressure ulcer location: buttock Laterality: unspecified laterality Qualified Code(s): L89.302 - Pressure ulcer of unspecified buttock, stage 2 (4) Urinary retention SNOMED Code(s): 195000976 ICD Code: R33.9 - RETENTION OF URINE, UNSPECIFIED Status: Acute Current Visit: Yes (5) Cachectic SNOMED Code(s): 607931145 ICD Code: R64 - CACHEXIA Status: Chronic Current Visit: Yes (6) Hospice care Status: Chronic Current Visit: Yes (7) Metastatic lung cancer (metastasis from lung to other site) SNOMED Code(s): 612925059 ICD Code: C34.90 - MALIGNANT NEOPLASM OF UNSP PART OF UNSP BRONCHUS OR LUNG Status: Chronic Current Visit: No Problem List Initiated/Reviewed/Updated: Yes Orders Last 24hrs: Active Orders 24 hr Category Date Time Status Patient Status [ADT] Routine ADT 01/22/17 13:09 Active Communication Order [RC] PRN Care 01/22/17 13:18 Active Up With Assistance [RC] ASDIRECTED Care 01/22/17 13:09 Active VTE/DVT Education [RC] PER UNIT ROUTINE Care 01/22/17 13:09 Active Vital Signs [RC] DAILY Care 01/22/17 13:09 Active Regular Diet [DIET] Diet 01/22/17 Lunch Active Dexamethasone Med 01/23/17 09:00 Ordered 8 mg PO DAILY Haloperidol Lactate [Haldol 2 MG/ML Soln] Med 01/22/17 13:12 Ordered 0.5 mg PO Q6H PRN Magnesium Hydroxide [Milk of Magnesia] Med 01/22/17 13:16 Ordered 30 ml PO BID PRN Morphine [MS Contin] Med 01/22/17 14:00 Ordered 15 mg PO TID Morphine [Morphine 20 MG/ML Soln] Med 01/22/17 13:12 Ordered 10 mg SL .Q30MIN PRN Sennosides [Senna] Med 01/22/17 13:16 Ordered 17.2 mg PO BID PRN oxyCODONE Med 01/22/17 13:16 Ordered 5 mg PO Q4H PRN Resuscitation Status Routine Resus Stat 01/22/17 13:09 Ordered Medication Orders Dexamethasone (Dexamethasone) 8 mg PO DAILY NUPUR Haloperidol Lactate (Haldol 2 Mg/Ml Soln) 0.5 mg PO Q6H PRN PRN Reason: nausea/restlessness/anxiety Magnesium Hydroxide (Milk Of Magnesia) 30 ml PO BID PRN PRN Reason: Constipation Morphine Sulfate (Morphine 20 Mg/Ml Soln) 10 mg SL .Q30MIN PRN PRN Reason: pain/SOB Morphine Sulfate (Ms Contin) 15 mg PO TID NUPUR Oxycodone HCl (Oxycodone) 5 mg PO Q4H PRN PRN Reason: Pain Senna (Senna) 17.2 mg PO BID PRN PRN Reason: Constipation Assessment/Plan Comment:: This 76 year old male admitted with intractable pain secondary to bone metstatsis from small cell lung ca 1. Intractable pain: Will hold Morphine SL for now, family and patient open to trying Morphine IV 4 mg Q1 hr ordered PRN pain and some Toradol to help with bone pain. Haldol available as well for agitation/anxiety. Will confer with Hospice for further orders as well. 2. Hospice care/comfort measures: Hoping to get pain under control today. Will monitor. Family would like respite care when pain better controlled. patient requests not to use PEG tube. Diet as tolerated orally.
[2017-01-22] MEDS ORDERED: Sodium Chloride 0.9% 10 ML Syringe FLUSH PRN (13:48)
[2017-01-22] MEDS ORDERED: Sodium Chloride 0.9% 2.5 ML Syringe FLUSH PRN (13:48)
[2017-01-22] MEDS: Morphine 15 MG Tab.ER PO SCH ×2 (14:30→21:32)
[2017-01-22] MEDS: Ketorolac 30 MG/ML SDV IVPUSH SCH ×2 (14:31→20:22)
[2017-01-22] MEDS: Morphine 4 MG/ML Syringe IVPUSH PRN ×7 (15:30→22:40)
[2017-01-22 21:59] VITALS: BP 82/54
[2017-01-23] MEDS: Morphine 4 MG/ML Syringe IVPUSH PRN ×4 (00:48→04:01)
[2017-01-23] MEDS: Ketorolac 30 MG/ML SDV IVPUSH SCH ×3 (01:52→15:35)
[2017-01-23] MEDS ORDERED: Dexamethasone 4 MG Tab PO SCH (09:00)
[2017-01-23] MEDS ORDERED: Morphine 10 MG/ML Syringe ONE ×2 (12:58→13:57)
[2017-01-23] MEDS ORDERED: Morphine PF 30 MG/30 ML PCA Vial ONE (12:59)
[2017-01-23] MEDS ORDERED: Morphine 10 MG/ML Syringe IVPUSH STA (13:44)
[2017-01-23] MEDS ORDERED: Morphine PF 30 MG/30 ML PCA Vial IV SCH ×2 (13:45)
[2017-01-23] MEDS: Morphine 15 MG Tab.ER PO SCH (15:37)
--- NOTE | 2017-01-23 17:37 | PCM.PN ---
- General Info Date of Service: 01/23/17 Admission Dx/Problem (Free Text): Admission Diagnosis/Problem Admission Diagnosis/Problem Intractable pain Subjective Update: This morning pain controlled. through the afternoon pain less and less controlled. Unable to swallow oral pills anymore. Family remains at bedside. Functional Status: Denies: Pain Controlled - Review of Systems Musculoskeletal: Reports: Other (generalized pain, patient keeps stating "pain, pain" over and over) - Patient Data Vitals - Most Recent: Last Vital Signs Temp 96.6 F 01/22/17 20:00 Pulse 112 H 01/22/17 20:00 Resp 22 H 01/22/17 20:00 BP 82/54 L 01/22/17 20:00 Pulse Ox 89 L 01/22/17 20:00 Weight - Most Recent: 71.668 kg I&O - Last 24 Hours: Intake & Output 01/22/17 01/23/17 01/23/17 22:59 06:59 14:59 Intake Total 0 Output Total 350 Balance -350 Med Orders - Current: Current Medications Dexamethasone (Dexamethasone) 8 mg PO DAILY [facility] Haloperidol Lactate (Haldol 2 Mg/Ml Soln) 0.5 mg PO Q6H PRN PRN Reason: nausea/restlessness/anxiety Ketorolac Tromethamine (Toradol) 30 mg IVPUSH Q6H [facility] Stop: 01/27/17 13:49 Last Admin: 01/23/17 01:52 Dose: 30 mg Magnesium Hydroxide (Milk Of Magnesia) 30 ml PO BID PRN PRN Reason: Constipation Last Admin: 01/22/17 15:30 Dose: 30 ml Morphine Sulfate (Morphine 20 Mg/Ml Soln) 10 mg SL Q30M PRN PRN Reason: pain/SOB Last Admin: 01/22/17 13:39 Dose: 10 mg Morphine Sulfate (Ms Contin) 15 mg PO TID [facility] Last Admin: 01/22/17 21:32 Dose: 15 mg Morphine Sulfate (Morphine) 4 mg IVPUSH Q1H PRN PRN Reason: pain/SOB Last Admin: 01/23/17 04:01 Dose: 4 mg Oxycodone HCl (Oxycodone) 5 mg PO Q4H PRN PRN Reason: Pain Senna (Senna) 17.2 mg PO BID PRN PRN Reason: Constipation Last Admin: 01/22/17 13:49 Dose: 17.2 mg Sodium Chloride (Saline Flush) 10 ml FLUSH ASDIRECTED PRN PRN Reason: Keep Vein Open Sodium Chloride (Saline Flush) 2.5 ml FLUSH ASDIRECTED PRN PRN Reason: Keep Vein Open - Exam General: Sedated (in and out of alertness) Lungs: Clear to Auscultation, Other (apnea noted intermittently) Cardiovascular: Tachycardia GI/Abdominal Exam: Normal Bowel Sounds, Soft, Non-Tender, No Organomegaly, No Distention, No Abnormal Bruit, No Mass, Pelvis Stable Extremities: Normal Inspection, Normal Range of Motion, Non-Tender, No Pedal Edema, Normal Capillary Refill - Problem List & Annotations (1) Comfort measures only status SNOMED Code(s): 48455154266883 Code(s): Z51.5 - ENCOUNTER FOR PALLIATIVE CARE Status: Acute Current Visit: Yes (2) Intractable pain SNOMED Code(s): 10259076 Code(s): R52 - PAIN, UNSPECIFIED Status: Acute Current Visit: Yes (3) Stage II pressure ulcer SNOMED Code(s): 312776660 Code(s): L89.92 - PRESSURE ULCER OF UNSPECIFIED SITE, STAGE 2 Status: Acute Current Visit: Yes Qualifiers: Pressure ulcer location: buttock Laterality: unspecified laterality Qualified Code(s): L89.302 - Pressure ulcer of unspecified buttock, stage 2 (4) Urinary retention SNOMED Code(s): 053070304 Code(s): R33.9 - RETENTION OF URINE, UNSPECIFIED Status: Acute Current Visit: Yes (5) Cachectic SNOMED Code(s): 875045133 Code(s): R64 - CACHEXIA Status: Chronic Current Visit: Yes (6) Hospice care Status: Chronic Current Visit: Yes (7) Metastatic lung cancer (metastasis from lung to other site) SNOMED Code(s): 849094170 Code(s): C34.90 - MALIGNANT NEOPLASM OF UNSP PART OF UNSP BRONCHUS OR LUNG Status: Chronic Current Visit: No - Problem List Review Problem List Initiated/Reviewed/Updated: Yes - My Orders Last 24 Hours: My Active Orders 01/22/17 13:09 Patient Status [ADT] Routine Up With Assistance [RC] ASDIRECTED VTE/DVT Education [RC] PER UNIT ROUTINE Vital Signs [RC] DAILY Resuscitation Status Routine 01/22/17 13:12 Haloperidol Lactate [Haldol 2 MG/ML Soln] 0.5 mg PO Q6H PRN Morphine [Morphine 20 MG/ML Soln] 10 mg SL Q30M PRN 01/22/17 13:16 Magnesium Hydroxide [Milk of Magnesia] 30 ml PO BID PRN Sennosides [Senna] 17.2 mg PO BID PRN oxyCODONE 5 mg PO Q4H PRN 01/22/17 13:18 Communication Order [RC] PRN 01/22/17 13:48 Morphine 4 mg IVPUSH Q1H PRN Sodium Chloride 0.9% [Saline Flush] 10 ml FLUSH ASDIRECTED PRN Sodium Chloride 0.9% [Saline Flush] 2.5 ml FLUSH ASDIRECTED PRN Peripheral IV Insertion Adult [OM.PC] Routine 01/22/17 14:00 Locke Catheter Insertion [Insert Urinary Catheter] [OM.PC] Q24H Urinary Catheter Assessment [RC] ASDIRECTED Ketorolac [Toradol] 30 mg IVPUSH Q6H Morphine [MS Contin] 15 mg PO TID 01/22/17 Lunch Regular Diet [DIET] 01/23/17 09:00 Dexamethasone 8 mg PO DAILY 01/23/17 13:44 Morphine 10 mg IVPUSH ONETIME STA 01/23/17 13:45 Morphine PF [Morphine RN CLINICAL COORDINATOR 30 MG in 30 ML] See Protocol IV ASDIRECTED - Plan Plan:: This 76 year old male admitted with intractable pain secondary to bone metstatsis from small cell lung ca 1. Intractable pain: Stop all oral medications, unable to swallow. Attempted Fentanyl patch to replace Morphine ER, pain became uncontrolled this afternoon. Hospice nurses at bedside. Morphine RN CLINICAL COORDINATOR started. 4 mg basal and 5 mg on demand. Continues to not work. consulted with Hospice directed, . Will place on 10 mg basal rate with 10 mg bolus now. May need to increase basal to 20 mg will monitor closely. 2. Hospice care/comfort measures: Pain remains uncontrolled. Will monitor. locke in place.
--- NOTE | 2017-01-23 17:40 | PCM.DCSUM1 ---
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 Yesterday morning patient was complaining of pain all over 10/10 with Moprhine SL they were able to bring it down to 6/10 but he continues to have pain. He was transferred to the hospital via ambulance this morning. He currently is resting in bed, appears very cachectic. He was alert and oriented for the most part. Drifts into sleep easily. Reports a lot of pain to his bottom. Hospice reports he had stage 1 pressure ulcer to coccyx, but he has not been moving much at home and there was some noted blood to his underwear today, but she was unable to assess it due to his weakness and inability to stand. At this time, he is in a lot of pain. I will defer assessment until patient pain is more under control. Patient to be admitted inpatient today for intractable pain related to bone mets and lung cancer. Will place IV for better pain control and trial IV Morphine and some Toradol for bone pain. He is requesting locke to be placed due to urinary retention as well. 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) Condition: Good - Discharge Diagnosis/Problem(s) (1) Comfort measures only status SNOMED Code(s): 23239504137776 ICD Code: Z51.5 - ENCOUNTER FOR PALLIATIVE CARE Status: Acute Current Visit: Yes (2) Intractable pain SNOMED Code(s): 49232795 ICD Code: R52 - PAIN, UNSPECIFIED Status: Acute Current Visit: Yes (3) Stage II pressure ulcer SNOMED Code(s): 336783946 ICD Code: L89.92 - PRESSURE ULCER OF UNSPECIFIED SITE, STAGE 2 Status: Acute Current Visit: Yes Qualifiers: Pressure ulcer location: buttock Laterality: unspecified laterality Qualified Code(s): L89.302 - Pressure ulcer of unspecified buttock, stage 2 (4) Urinary retention SNOMED Code(s): 663074158 ICD Code: R33.9 - RETENTION OF URINE, UNSPECIFIED Status: Acute Current Visit: Yes (5) Cachectic SNOMED Code(s): 653138093 ICD Code: R64 - CACHEXIA Status: Chronic Current Visit: Yes (6) Hospice care Status: Chronic Current Visit: Yes (7) Metastatic lung cancer (metastasis from lung to other site) SNOMED Code(s): 300583602 ICD Code: C34.90 - MALIGNANT NEOPLASM OF UNSP PART OF UNSP BRONCHUS OR LUNG Status: Chronic Current Visit: No - Discharge Plan Home Medications: Home Meds Finasteride 5 mg PO DAILY 04/07/16 [History] Multivitamin [Men's Multi-Vitamin] 1 each PO DAILY 11/29/16 [History] Sennosides [Senna] 2 tab PO QID 11/29/16 [History] Omeprazole 40 mg PO BIDAC 12/11/16 [History] Sucralfate 1 gm PO ASDIRECTED 12/11/16 [History] - Discharge Summary/Plan Comment DC Time >30 min.: No Discharge Summary/Plan Comment: Cause of : Small cell lung cancer with metastasis to bone and brain Secondary diagnoses: Protein malnutrition Palliative care Acute hospice for intractable bone pain Stage 1 pressure ulcer to coccyx Hx HTN PEG tube [facility] was admitted inpatient hospice for intractable generalized bone pain secondary to metastases. Today pain became very uncontrolled. After consultation with Ec[employer]ical Worker, Dr. Evans, patient was started on Morphine drip, 10 mg/hr. Patient was given multiple doses of 5 mg Morphine IV without relief. Bolus dose increased to 10 mg IV Morphine. This was given. Family at bedside with Hospice nurses. Patient was noted by family members to not be breathing. Nursing staff notified. Patient noted to not have cardiac activity or respiratory activity, time of 1208. Family remained at bedside during this time and notified of patient . Hospice nurse as well. home called. - Patient Data Vitals - Most Recent: Last Vital Signs Temp 96.6 F 01/22/17 20:00 Pulse 112 H 01/22/17 20:00 Resp 22 H 01/22/17 20:00 BP 82/54 L 01/22/17 20:00 Pulse Ox 89 L 01/22/17 20:00 Weight - Most Recent: 71.668 kg Med Orders - Current: Current Medications Dexamethasone (Dexamethasone) 8 mg PO DAILY NUPUR Haloperidol Lactate (Haldol 2 Mg/Ml Soln) 0.5 mg PO Q6H PRN PRN Reason: nausea/restlessness/anxiety Ketorolac Tromethamine (Toradol) 30 mg IVPUSH Q6H [facility] Stop: 01/27/17 13:49 Last Admin: 01/23/17 01:52 Dose: 30 mg Magnesium Hydroxide (Milk Of Magnesia) 30 ml PO BID PRN PRN Reason: Constipation Last Admin: 01/22/17 15:30 Dose: 30 ml Morphine Sulfate (Morphine 20 Mg/Ml Soln) 10 mg SL Q30M PRN PRN Reason: pain/SOB Last Admin: 01/22/17 13:39 Dose: 10 mg Morphine Sulfate (Ms Contin) 15 mg PO TID NUPUR Last Admin: 01/22/17 21:32 Dose: 15 mg Morphine Sulfate (Morphine) 4 mg IVPUSH Q1H PRN PRN Reason: pain/SOB Last Admin: 01/23/17 04:01 Dose: 4 mg Oxycodone HCl (Oxycodone) 5 mg PO Q4H PRN PRN Reason: Pain Senna (Senna) 17.2 mg PO BID PRN PRN Reason: Constipation Last Admin: 01/22/17 13:49 Dose: 17.2 mg Sodium Chloride (Saline Flush) 10 ml FLUSH ASDIRECTED PRN PRN Reason: Keep Vein Open Sodium Chloride (Saline Flush) 2.5 ml FLUSH ASDIRECTED PRN PRN Reason: Keep Vein Open *Q Meaningful Use (DIS) - VTE *Q VTE Criteria *Q: - Stroke *Q Stroke Criteria *Q: - AMI *Q AMI Criteria *Q:
== END 2017-01-23 15:05 | disposition expired | DRG 948 ==
LOC: MW.MS 12:29
PROVIDERS: ADMIT Internal Medicine; ATTEND Internal Medicine
PROC: 0T9B70Z Drainage of Bladder with Drainage Device, Via Natural or Artificial Opening (ICD-10-PCS; principal; 2017-01-22)
DX: G89.3 Neoplasm related pain (acute) (chronic) (principal); C34.90 Malignant neoplasm of unspecified part of unspecified bronchus or lung; C79.51 Secondary malignant neoplasm of bone; C79.31 Secondary malignant neoplasm of brain; E46 Unspecified protein-calorie malnutrition; R33.9 Retention of urine, unspecified; R64 Cachexia; Z51.5 Encounter for palliative care; Z79.899 Other long term (current) drug therapy; I10 Essential (primary) hypertension; Z88.8 Allergy status to other drugs, medicaments and biological substances; Z87.891 Personal history of nicotine dependence; Z93.1 Gastrostomy status; L89.92 Pressure ulcer of unspecified site, stage 2
CPT/HCPCS: A9270-GY; J1885; J2270